=== PATIENT | male | born 1970 | race Caucasian/White ===

== ENCOUNTER 2017-01-12 10:15 | Emergency (ER) | payer SELFPAY ==
--- NOTE | 2017-01-12 11:00 | RAD ---
EXAM DESCRIPTION: Chest,1 View CLINICAL HISTORY: 46 years Male, CHEST PAIN COMPARISON: None. TECHNIQUE: AP portable chest. FINDINGS: Expansion of the lungs with mild cardiomegaly is present with normal vascularity. No infiltrates or effusions or masses are noted. The hilar and mediastinal structures are normal. No gross bony abnormalities noted. IMPRESSION: Mild cardiomegaly with clear lung guardado and normal vascularity. Electronically signed by: Broderick Lala MD 01/12/2017 10:59 AM CDT
[2017-01-12] MEDS: NITROGLYCERIN 0.4 MG 25 EA TAB SL ONE (11:06)
--- NOTE | 2017-01-12 11:23 | ED.PDOC ---
History of Present Illness - General Chief Complaint: Chest Pain/CA Stated Complaint: CHEST PAIN Time Seen by Provider: 01/12/17 10:18 Source: patient Exam Limitations: no limitations - History of Present Illness Initial Comments: PT REPORTS MID STERNAL CHEST PAIN SINCE 830 THIS AM THAT AWOKE HIM FROM SLEEP. PT REPORTS PAIN IS ASSOCIATED WITH DIAPHORESIS. HE DENIES SOB OR RADIATION OF PAIN. PT REPORTS HISTORY OF CA IN 2014 WITH NO STENT PLACEMENT. 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 PT REPORTS PAIN IS 6/10 AT THIS TIME AFTER TAKING 2 BABY ASA AT HOME Timing/Duration: 1-3 hours Severity/Quality: moderate, pressure Location: substernal, central Chest Pain Radiation: no radiation Activities at Onset: sleep Prior Chest Pain/Cardiac Workup: heart attack - 2014 Improving Factors: nothing Worsening Factors: other - LAYING ON RIGHT SIDE AND BACK Nitro Today/Relief: no nitro taken today Aspirin Treatment Today: 81 mg x 2 Associated Symptoms: diaphoresis Allergies/Adverse Reactions: Allergies NO KNOWN ALLERGY Allergy (Verified 01/12/17 10:36) Review of Systems - Review of Systems Constitutional: Denies: chills, fever EENTM: Denies: blurred vision, nose congestion Respiratory: Denies: cough, short of breath Cardiology: States: see HPI, chest pain. Denies: edema Gastrointestinal/Abdominal: Denies: abdominal pain, nausea Genitourinary: Denies: dysuria, hematuria Musculoskeletal: Denies: joint pain, joint swelling Skin: Denies: change in color, lesions Neurological: Denies: headache, paresthesia Endocrine: Denies: intolerance to cold, intolerance to heat Hematologic/Lymphatic: Denies: anemia, easy bleeding Past Medical History (General) - Patient Medical History Hx Stroke: No Hx Asthma: No Hx of COPD: No Hx Cardiac Disorders: Yes - [place] 2014 Hx Congestive Heart Failure: No Hx Hypertension: Yes Hx Diabetes: No Hx Other - free text: HYPERLIPIDEMIA - Social History Hx Tobacco Use: Yes - 1PPD Physical Exam - Physical Exam General Appearance: Alert, Obvious distress, Obese Eyes, Ears, Nose, Throat Exam: normal ENT inspection Neck: normal inspection Respiratory: chest non-tender, lungs clear, normal breath sounds, no respiratory distress Cardiovascular/Chest: regular rate, rhythm, no edema, no murmur Gastrointestinal/Abdominal: non tender, soft Extremity: normal range of motion, non-tender Neurologic: alert, normal mood/affect, oriented x 3 Skin Exam: normal color, warm/dry Progress - Progress Progress: 01/12/17 11:20 PT REPORTS COMPLETE RESOLUTION OF CHEST PAIN AFTER 1 SL NTG. 01/12/17 11:40 LAB FINDINGS AND EKG FINDINGS DISCUSSED WITH PT. DISCUSSED PLAN TO TRANSFER TO [facility]. NTG AND HEPARIN DRIP ORDERED. - Results/Orders Results/Orders: 01/12/17 10:38 IV Care:Saline Lock per Protoc QSHIFT Telemetry .ONCE Sodium Chloride 0.9% (Flush) [Saline Flush Syringe] 10 ml IV PRN PRN EKG Stat Pulse Ox Stat 01/12/17 11:00 B-TYPE NATRIURETIC PEPTIDE/BNP Stat CARDIAC PANEL,ER Stat HEPATIC FUNCTION PANEL Stat 01/12/17 11:45 Heparin Premix [Heparin/D5w 25,000U/500ML] 25,000 units Premix Bag 1 bag IVS PRN 01/12/17 12:00 Nitroglycerin/D5w IV 50,000 mcg Premix Bottle 1 bottle IVS PRN Laboratory Results - last 24 hr 01/12/17 01/12/17 01/12/17 10:36 11:00 11:00 WBC 23.5 H* RBC 5.82 Hgb 16.7 Hct 49.6 MCV 85.1 MCH 28.7 MCHC 33.7 RDW 13.5 Plt Count 356 MPV 8.8 Absolute Neuts (auto) 19.70 H Absolute Lymphs (auto) 2.10 Absolute Monos (auto) 1.10 H Absolute Eos (auto) 0.30 Absolute Basos (auto) 0.30 H Neutrophils % 84.0 H Neutrophils % (Manual) 71.0 Lymphocytes % 9.1 L Lymphocytes % (Manual) 7.0 Monocytes % 4.5 Monocytes % (Manual) 0.0 Eosinophils % 1.1 Basophils % 1.3 Band Neutrophils 22.0 Platelet Estimate Normal PT 12.3 INR 1.090 PTT (SP) 36.0 Sodium 138 Potassium 4.0 Chloride 101 Carbon Dioxide 23 Anion Gap 18.0 BUN 20 H Creatinine 1.14 BUN/Creatinine Ratio 17.5 POC Glucose 164 H Random Glucose 176 H Serum Osmolality 282.6 Calcium 9.8 Magnesium 1.9 Total Bilirubin 0.6 Direct Bilirubin < 0.1 Indirect Bilirubin 0.5 AST 38 ALT 49 Alkaline Phosphatase 85 Creatine Kinase 125 CK-MB (CK-2) 10.7 H* CK-MB (CK-2) % Not Reportable Troponin I 0.08 H* Serum Total Protein 7.7 Albumin 4.2 - EKG/XRAY/CT EKG: Sinus, Tachy - @101, NL NTERVALS, NL AXIS, ST depression - SLIGHT WITH T WAVE INVERSIONS IN LATERAL LEADS, NO OLD EKG FOR COMPARISON Comments: EKG #2- NSR@93BPM, NO ACUTE ST-T WAVE CHANGES COMPARED TO PREVIOUS XRAY: chest - MILD CARDIOMEGALY, OTHERWISE NORMAL PER RAD. Departure - Departure Clinical Impression: Acute myocardial infarction Time of Disposition: 11:42 Disposition: Transfer to Hospital Condition: Fair Departure Forms: ED Discharge - Pt. Copy, Patient Portal Self Enrollment Transfer to Outside Facility - Transfer Information Accepting Provider:: DR. DAVIES Accepting Facility: [facility] Reason for Transfer: required specialist not available - CHIEF ENVIRONMENTAL COMMITMENT OFFICER
[2017-01-12] MEDS: ASPIRIN TABLET 325 MG TAB PO ONE (11:29)
[2017-01-12] MEDS ORDERED: HEPARIN PREMIX 500 ML ONE (11:37)
[2017-01-12] MEDS: METOPROLOL TARTRATE INJ 5 MG/5 ML VIAL IV ONE (11:55)
[2017-01-12] MEDS: HEPARIN PREMIX 25,000 UNITS in PREMIX BAG 1 BAG IVS SCH (12:02)
[2017-01-12 12:29] VITALS: TEMP 98.2
[2017-01-12] MEDS: NITROGLYCERIN/D5W IV 50,000 MCG in PREMIX BOTTLE 1 BOTTLE IVS SCH (12:57)
[2017-01-12] MEDS ORDERED: NITROGLYCERIN/D5W IV 250 ML IVS ONE (12:57)
[2017-01-12] MEDS: SODIUM CHLORIDE 0.9% (FLUSH) 10 ML SYG IV PRN (13:04)
[2017-01-12 14:12] VITALS: BP 114/59; O2SAT 95
== END 2017-01-12 12:40 | disposition short-term general hospital (02) ==
LOC: ER 10:15
DX: I21.3 ST elevation (STEMI) myocardial infarction of unspecified site (principal); I25.2 Old myocardial infarction; I10 Essential (primary) hypertension; F17.200 Nicotine dependence, unspecified, uncomplicated; E78.5 Hyperlipidemia, unspecified; Z79.82 Long term (current) use of aspirin; Z79.899 Other long term (current) drug therapy

== ENCOUNTER 2017-01-20 13:40 | Emergency (ER) | payer SELFPAY ==
[2017-01-20 13:53] VITALS: TEMP 96.3
--- NOTE | 2017-01-20 14:20 | ED.PDOC ---
History of Present Illness - General Chief Complaint: Lower Extremity Injury Stated Complaint: left ankle pain Time Seen by Provider: 01/20/17 14:20 Source: patient Exam Limitations: no limitations - History of Present Illness Initial Comments: Lowell Brown 46 y/o male stated that his left heel had been hurting sharp pain whenever he walks for several days.Denies history of trauma or overuse injuries.No fever no foot swelling Occurred: other - several days Pain - Lower Extremity: moderate: Left Foot Method of Injury: unknown Improving Factors: rest Worsening Factors: movement Allergies/Adverse Reactions: Allergies NO KNOWN ALLERGY Allergy (Verified 01/12/17 10:36) Home Medications: Ambulatory Orders Naproxen [Naprosyn] 500 mg PO BID #20 tab 01/20/17 Review of Systems - Review of Systems Constitutional: States: no symptoms reported EENTM: States: no symptoms reported Respiratory: States: no symptoms reported Cardiology: States: no symptoms reported Gastrointestinal/Abdominal: States: no symptoms reported Genitourinary: States: no symptoms reported Musculoskeletal: States: see HPI Skin: States: no symptoms reported Neurological: States: no symptoms reported Endocrine: States: no symptoms reported Hematologic/Lymphatic: States: no symptoms reported Past Medical History (General) - Patient Medical History Hx Stroke: No Hx Asthma: No Hx of COPD: No Hx Cardiac Disorders: Yes - [place] 2014 Hx Congestive Heart Failure: No Hx Hypertension: Yes Hx Diabetes: No Surgical History: no surgical history, other - cardiac cath - Vaccination History Hx Influenza Vaccination: No Hx Pneumococcal Vaccination: No - Social History Hx Tobacco Use: Yes - 1PPD - Activities of Daily Living Patient Lives Alone: No - family Family Medical History - Family History Father Living Status: Still Living Hx Family Hypertension: Yes Hx Cardiac Disease: Yes - dad Physical Exam - Physical Exam General Appearance: Alert, Comfortable, No apparent distress Eyes, Ears, Nose, Throat: PERRL/EOMI, normal ENT inspection, TMs normal, pharynx normal Neck: non-tender, full range of motion, supple Cardiovascular/Respiratory: regular rate, rhythm, no M/R/G, normal peripheral pulses, no JVD, normal breath sounds, no respiratory distress Gastrointestinal/Abdominal: non-tender, no organomegaly Back: normal inspection, no CVA tenderness, no vertebral tenderness Thigh/Hip: normal inspection, non-tender, no evidence of injury Leg: normal inspection, non-tender, no evidence of injury Knee: normal inspection, non-tender, no evidence of injury Ankle: normal inspection, non-tender, no evidence of injury Foot: normal inspection, no evidence of injury, other - pain elicited on pressure left heel Neuro/Tendon: normal sensation, normal motor functions, normal tendon functions Mental Status: alert Skin: normal color, warm/dry Progress - Progress Progress: 01/20/17 14:38 Vital Signs - 8 hr 01/20/17 13:49 Temperature 96.3 F L Pulse Rate [ 74 left brachial] Respiratory 16 Rate Blood Pressure 122/78 [left brachial] O2 Sat by Pulse 96 Oximetry Departure - Departure Clinical Impression: Plantar fasciitis Time of Disposition: 14:39 Disposition: Discharge to Home or Self Care Condition: Good Departure Forms: ED Discharge - Pt. Copy, Patient Portal Self Enrollment Instructions: Get Back in the Game after Plantar Fasciitis, Plantar Fasciitis, DI for Plantar Fasciitis Prescriptions: Naproxen [Naprosyn] 500 mg PO BID #20 tab Home Medications: Ambulatory Orders Naproxen [Naprosyn] 500 mg PO BID #20 tab 01/20/17 Additional Instructions: Follow up with primary md in one week call for appointment
[2017-01-20 14:56] VITALS: BP 114/69; O2SAT 99
== END 2017-01-20 14:50 | disposition home or self-care (01) ==
LOC: ER 13:40
DX: M72.2 Plantar fascial fibromatosis (principal); I25.2 Old myocardial infarction; I10 Essential (primary) hypertension; F17.200 Nicotine dependence, unspecified, uncomplicated

== ENCOUNTER 2018-05-27 11:27 | Emergency (ER) | payer SELFPAY ==
--- NOTE | 2018-05-27 11:41 | ED.PDOC ---
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 Timing/Duration: 1-3 hours Severity: moderate Improving Factors: nothing Worsening Factors: nothing Associated Symptoms: other - see hpi Allergies/Adverse Reactions: Allergies NO KNOWN ALLERGY Allergy (Verified 01/12/17 10:36) Home Medications: Ambulatory Orders NK [NK] 05/27/18 Review of Systems - Review of Systems Constitutional: States: no symptoms reported EENTM: States: no symptoms reported Respiratory: States: no symptoms reported Cardiology: States: no symptoms reported Gastrointestinal/Abdominal: States: see HPI Musculoskeletal: States: see HPI, back pain Skin: States: no symptoms reported Neurological: States: no symptoms reported Hematologic/Lymphatic: States: no symptoms reported Past Medical History (General) - Patient Medical History Hx Stroke: No Hx Asthma: No Hx of COPD: No Hx Cardiac Disorders: Yes - [place] 2014 Hx Congestive Heart Failure: No Hx Hypertension: Yes Hx Diabetes: No Surgical History: no surgical history - Vaccination History Hx Influenza Vaccination: No Hx Pneumococcal Vaccination: No - Social History Hx Tobacco Use: Yes - 1PPD Hx Substance Use: Yes - meth amphetamine-3 years ;had used 4 days ago smoked no needles Hx Physical Abuse: No Hx Emotional Abuse: No Family Medical History - Family History Father Living Status: Still Living Hx Family Hypertension: Yes Hx Cardiac Disease: Yes - multiple family members Physical Exam - Physical Exam General Appearance: Alert, Anxious, Comfortable, No apparent distress Eye Exam: bilateral normal Ears, Nose, Throat: hearing grossly normal, normal ENT inspection, normal pharynx Neck: non-tender, full range of motion, supple Respiratory: chest non-tender, lungs clear, normal breath sounds, no respiratory distress Cardiovascular/Chest: normal peripheral pulses, regular rate, rhythm, no murmur Peripheral Pulses: radial,right: 2+, radial,left: 2+ Gastrointestinal/Abdominal: normal bowel sounds, non tender, soft, no organomegaly Back Exam: no CVA tenderness, no vertebral tenderness Extremity: no pedal edema, no calf tenderness Neurologic: alert, oriented x 3 Skin Exam: normal color, warm/dry Progress - Progress Progress: 05/27/18 12:15 Vital Signs - 8 hr 05/27/18 05/27/18 11:39 11:45 Temperature 95.6 F L Pulse Rate [ 108 H left brachial] Respiratory 28 H 28 H Rate Blood Pressure 163/108 [right brachial ] O2 Sat by Pulse 100 Oximetry 05/27/18 15:51 Discuss blood test result with positive troponin x 2 as well as ekg ischemic changes and positive meth ;Talked about transfer to [facility] but declined ambulance transfer and wants to go by himself there drive by pov. - Results/Orders Results/Orders: 05/27/18 11:43 IV Care:Saline Lock per Protoc QSHIFT 05/27/18 15:07 Lactated Ringers [Lr] 1,000 ml IVS ONCE Laboratory Results - last 24 hr 05/27/18 05/27/18 05/27/18 12:21 12:26 12:30 WBC 10.0 RBC 6.39 H Hgb 18.0 Hct 53.8 H MCV 84.2 MCH 28.1 MCHC 33.4 RDW 14.8 H Plt Count 270 MPV 9.1 Absolute Neuts (auto) 6.90 H Absolute Lymphs (auto) 2.20 Absolute Monos (auto) 0.60 Absolute Eos (auto) 0.20 Absolute Basos (auto) 0.10 Neutrophils % 69.0 Lymphocytes % 22.5 Monocytes % 5.7 Eosinophils % 1.7 Basophils % 1.1 PT 10.7 INR 1.07 PTT (SP) 26.3 Sodium 136 Potassium 4.0 Chloride 102 Carbon Dioxide 26 Anion Gap 12.0 BUN 16 Creatinine 0.97 BUN/Creatinine Ratio 16.5 Random Glucose 116 H Serum Osmolality 274.1 L Calcium 9.7 Magnesium 1.9 Total Bilirubin 0.7 Direct Bilirubin < 0.1 Indirect Bilirubin 0.6 AST 21 ALT 15 Alkaline Phosphatase 75 Creatine Kinase 124 CK-MB (CK-2) 9.8 H* CK-MB (CK-2) % 7.90 H Troponin I 0.07 H* B-Natriuretic Peptide 340.0 H* Serum Total Protein 7.5 Albumin 4.4 Lipase 20 L Urine Color Yellow Urine Appearance Clear Urine pH 6.5 Ur Specific [place] 1.025 Urine Protein Negative Urine Glucose (UA) Negative Urine Ketones Negative Urine Blood Trace-lysed H Urine Nitrite Negative Urine Bilirubin Negative Urine Urobilinogen 0.2 Ur Leukocyte Esterase Negative Urine RBC 1-3 Urine WBC 0-1 Ur Epithelial Cells 0-1 Urine Bacteria Rare Urine Opiates Screen Positive H Urine Barbiturates Negative Ur Phencyclidine Scrn Negative U Amphetamin/Meth Scrn Positive H U Benzodiazepines Scrn Negative U Cocaine Metab Screen Negative U Cannabinoids Screen Negative 05/27/18 14:43 WBC RBC Hgb Hct MCV MCH MCHC RDW Plt Count MPV Absolute Neuts (auto) Absolute Lymphs (auto) Absolute Monos (auto) Absolute Eos (auto) Absolute Basos (auto) Neutrophils % Lymphocytes % Monocytes % Eosinophils % Basophils % PT INR PTT (SP) Sodium Potassium Chloride Carbon Dioxide Anion Gap BUN Creatinine BUN/Creatinine Ratio Random Glucose Serum Osmolality Calcium Magnesium Total Bilirubin Direct Bilirubin Indirect Bilirubin AST ALT Alkaline Phosphatase Creatine Kinase CK-MB (CK-2) CK-MB (CK-2) % Troponin I 0.06 H B-Natriuretic Peptide Serum Total Protein Albumin Lipase Urine Color Urine Appearance Urine pH Ur Specific [place] Urine Protein Urine Glucose (UA) Urine Ketones Urine Blood Urine Nitrite Urine Bilirubin Urine Urobilinogen Ur Leukocyte Esterase Urine RBC Urine WBC Ur Epithelial Cells Urine Bacteria Urine Opiates Screen Urine Barbiturates Ur Phencyclidine Scrn U Amphetamin/Meth Scrn U Benzodiazepines Scrn U Cocaine Metab Screen U Cannabinoids Screen - EKG/XRAY/CT EKG: Sinus, ST depression - inferolateral leads Comments: HR-93 XRAY: chest - normal portable chest Xray Comments: abdominal sono-no acute changes noted Departure - Departure Clinical Impression: Elevated troponin I level, Methamphetamine dependence, Non compliance w medication regimen Abdominal pain Qualifiers: Abdominal location: epigastric Qualified Code(s): R10.13 - Epigastric pain Back ache Qualifiers: Back pain location: thoracic back pain Chronicity: unspecified Back pain laterality: midline Qualified Code(s): M54.6 - Pain in thoracic spine Time of Disposition: 15:57 Disposition: Left Against Medical Advice Condition: Fair Departure Forms: ED Discharge - Pt. Copy, Patient Portal Self Enrollment Home Medications: Ambulatory Orders NK [NK] 05/27/18
--- NOTE | 2018-05-27 12:02 | RAD ---
EXAM DESCRIPTION: Chest,1 View CLINICAL HISTORY: pain COMPARISON: 12 January 2017 TECHNIQUE: AP portable chest FINDINGS: The lungs are clear. There is no infiltrate or effusion. The heart is normal size. IMPRESSION: Normal portable chest Electronically signed by: Anoop Gruber MD 05/27/2018 12:01 PM [facility]AN[facility] CAREGIVER
[2018-05-27] MEDS: MORPHINE SULFATE INJ 10 MG/ML VIAL IV ONE (12:09)
--- NOTE | 2018-05-27 13:08 | US ---
Procedure: US ABDOMEN Exam Date: 05/27/2018 Ordering Provider: Hadley Corona Clinical Indication: Abdominal pain Comparison: None Technique: Real-time ultrasonography was obtained over the abdominal viscera and home furnishings sales representative images were recorded. Findings: The liver is normal in size and contour. There is normal echogenicity throughout the liver. There are no intrahepatic masses. There is no intrahepatic ductal dilatation. The gallbladder is normal in size and appearance. There are no gallstones. There is no gallbladder wall thickening or pericholecystic fluid. The extrahepatic common duct is normal in size measuring 4 mm. The spleen is normal in size and contour. There is a 1 cm splenic cyst. The visualized portions of the pancreas are normal. The aorta has a normal appearance. The inferior vena cava has a normal appearance. The right kidney measures 9.4 cm in bipolar length. There are no suspicious masses, calculi, or hydronephrosis. The left kidney measures 10.6 cm in bipolar length. There are no suspicious masses, calculi, or hydronephrosis. There is a 2.1 cm cyst in the upper pole. There is no ascites. Impression: 1. Splenic and left renal cyst. The exam is otherwise negative. Electronically signed by: Julito Flor MD 05/27/2018 1:07 PM [facility]
[2018-05-27] MEDS: ASPIRIN (CHEWABLE) 81 MG TAB PO ONE (13:59)
[2018-05-27] MEDS: LACTATED RINGERS 1,000 ML IVS ONE (15:16)
[2018-05-27 15:21] VITALS: BP 141/90; TEMP 96.2; O2SAT 98
== END 2018-05-27 16:00 | disposition left against medical advice (07) ==
LOC: ER 11:27
DX: R10.13 Epigastric pain (principal); M54.6 Pain in thoracic spine; R79.89 Other specified abnormal findings of blood chemistry; F15.20 Other stimulant dependence, uncomplicated; I25.2 Old myocardial infarction; I10 Essential (primary) hypertension; Z87.891 Personal history of nicotine dependence; Z91.14 Patient's other noncompliance with medication regimen; Z53.29 Procedure and treatment not carried out because of patient's decision for other reasons

== ENCOUNTER 2018-08-31 00:53 | Emergency (ER) | payer SELFPAY ==
[2018-08-31] MEDS ORDERED: ASPIRIN TABLET 325 MG TAB PO ONE (01:01)
[2018-08-31] MEDS ORDERED: ONDANSETRON INJ 4 MG/2 ML VIAL IV ONE ×2 (01:01→01:31)
[2018-08-31 01:10] VITALS: O2SAT 99
[2018-08-31] MEDS: NITROGLYCERIN 0.4 MG 25 EA TAB SL ONE ×3 (01:11→01:21)
--- NOTE | 2018-08-31 01:23 | ED.PDOC ---
History of Present Illness - General Chief Complaint: Chest Pain/MT Stated Complaint: Chest pain Time Seen by Provider: 08/31/18 01:05 Source: patient Exam Limitations: no limitations - History of Present Illness Initial Comments: ACUTE ONSET OF CHEST PAIN, EPIGASTRIC AREA AND RADIATION TO THE BACK 04/17; ASSOCIATED WITH SOB AND DIPHORESIS. HAS HAD SIMILAR EPISODES IN THE PAST AND VOICES THAT HE HAS HAD THREE MT'S. 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 THE LAST TIME HE HAD AN MT HE REFUSED TRANSFER TO [place] BECAUSE HE USES METHAMPHETAMINES. HE LAST USED THREE DAYS AGO. Timing/Duration: 1/2 hour Severity/Quality: severe, pressure Location: substernal Chest Pain Radiation: back Activities at Onset: none Prior Chest Pain/Cardiac Workup: heart attack Improving Factors: nothing Allergies/Adverse Reactions: Allergies NO KNOWN ALLERGY Allergy (Verified 01/12/17 10:36) Home Medications: Ambulatory Orders NK 05/27/18 Review of Systems - Review of Systems Constitutional: States: diaphoresis EENTM: States: no symptoms reported Respiratory: States: short of breath Cardiology: States: chest pain, palpitations Gastrointestinal/Abdominal: States: nausea Genitourinary: States: no symptoms reported Musculoskeletal: States: no symptoms reported Skin: States: no symptoms reported Neurological: States: no symptoms reported Endocrine: States: no symptoms reported Hematologic/Lymphatic: States: no symptoms reported Past Medical History (General) - Patient Medical History Hx Stroke: No Hx Asthma: Yes Hx of COPD: No Hx Cardiac Disorders: Yes - MT x 2; hypercholesterolemia Hx Congestive Heart Failure: No Hx Hypertension: Yes Hx Diabetes: No Surgical History: no surgical history - Vaccination History Hx Tetanus, Diphtheria Vaccination: No Hx Influenza Vaccination: No Hx Pneumococcal Vaccination: No - Social History Hx Tobacco Use: Yes Hx Alcohol Use: No Hx Substance Use: Yes - meth amphetamine-3 years ;had used 4 days ago smoked no needles Hx Physical Abuse: No Hx Emotional Abuse: No Family Medical History - Family History Father Living Status: Still Living Hx Family Hypertension: Yes Hx Cardiac Disease: Yes - multiple family members Physical Exam - Physical Exam General Appearance: Alert, Obvious distress, Well Developed, Well Groomed Eyes, Ears, Nose, Throat Exam: PERRL/EOMI, normal ENT inspection Neck: non-tender, full range of motion, supple, normal inspection Respiratory: lungs clear, normal breath sounds, no respiratory distress, no accessory muscle use Cardiovascular/Chest: normal peripheral pulses, regular rate, rhythm, no edema, no gallop, no murmur Peripheral Pulses: radial,right: 2+, radial,left: 2+ Gastrointestinal/Abdominal: normal bowel sounds, soft Neurologic: no motor/sensory deficits, oriented x 3 Skin Exam: normal color Progress - Progress Progress: 08/31/18 01:36 TROPONIN I IS 0.09 08/31/18 01:[address] ELIZABETH GARCIA: ACCEPTS THE PATIENT. - Results/Orders Results/Orders: 08/31/18 01:01 Telemetry .ONCE EKG Stat Pulse Ox Stat Chest,1 View [RAD] Stat 08/31/18 01:02 Pulse Oximetry Assessment DAILY 08/31/18 01:45 Heparin Premix [Heparin/D5w 25,000U/500ML] 25,000 units Premix Bag 1 bag IVS PRN 08/31/18 02:00 Nitroglycerin/D5w IV 50,000 mcg Premix Bottle 1 bottle IVS PRN Laboratory Results WBC 11.4 K/mm3 (4.8-10.8) H 08/31/18 01:01 RBC 6.55 M/mm3 (4.70-6.10) H 08/31/18 01:01 Hgb 18.1 gm/dL (14.0-18.0) H 08/31/18 01:01 Hct 54.5 % (42.0-52.0) H 08/31/18 01:01 MCV 83.2 fl (80.0-94.0) 08/31/18 01:01 MCH 27.6 pg (27.0-31.0) 08/31/18 01:01 MCHC 33.1 g/dL (33.0-37.0) 08/31/18 01:01 RDW 13.4 % (11.5-14.5) 08/31/18 01:01 Plt Count 315 K/mm3 (130-400) 08/31/18 01:01 MPV 8.6 fl (7.40-10.4) 08/31/18 01:01 Absolute Neuts (auto) 7.60 K/uL (1.8-6.8) H 08/31/18 01:01 Absolute Lymphs (auto) 2.70 K/uL (1.0-3.4) 08/31/18 01:01 Absolute Monos (auto) 0.80 K/uL (0.2-0.8) 08/31/18 01:01 Absolute Eos (auto) 0.20 K/uL (0.0-0.4) 08/31/18 01:01 Absolute Basos (auto) 0.10 K/uL (0.0-0.1) 08/31/18 01:01 Neutrophils % 66.4 % (42.0-78.0) 08/31/18 01:01 Lymphocytes % 23.8 % (20.0-50.0) 08/31/18 01:01 Monocytes % 7.2 % (2.0-9.0) 08/31/18 01:01 Eosinophils % 1.4 % (1.0-5.0) 08/31/18 01:01 Basophils % 1.2 % (0.0-2.0) 08/31/18 01:01 PT 11.2 SECONDS (9.0-10.9) H 08/31/18 01:01 INR 1.12 (0.9-1.15) 08/31/18 01:01 PTT (SP) 26.0 SECONDS (21.8-31.6) 08/31/18 01:01 Sodium 140 mmol/L (135-145) 08/31/18 01:01 Potassium 4.3 mmol/L (3.6-5.0) 08/31/18 01:01 Chloride 103 mmol/L (101-111) 08/31/18 01:01 Carbon Dioxide 24 mmol/L (21-31) 08/31/18 01:01 Anion Gap 17.3 (12-18) 08/31/18 01:01 BUN 18 mg/dL (7-18) 08/31/18 01:01 Creatinine 1.33 mg/dL (0.6-1.3) H 08/31/18 01:01 BUN/Creatinine Ratio 13.5 (10-20) 08/31/18 01:01 Random Glucose 118 mg/dL (70-105) H 08/31/18 01:01 Serum Osmolality 282.4 mOsm/L (275-295) 08/31/18 01:01 Calcium 9.2 mg/dL (8.4-10.2) 08/31/18 01:01 Magnesium 1.9 mg/dL (1.8-2.5) 08/31/18 01:01 Creatine Kinase 157 IU/L (38-174) 08/31/18 01:01 CK-MB (CK-2) 10.6 ng/mL (0.0-4.4) H* 08/31/18 01:01 CK-MB (CK-2) % 6.75 % (0.0-3.5) H 08/31/18 01:01 Troponin I 0.09 ng/mL (0.01-0.05) H* 08/31/18 01:01 B-Natriuretic Peptide 269.0 pg/ml (0-100) H* 08/31/18 01:01 ekg: HR OF 110, MA INTERVAL OF 186, QRS OF 90, QTC OF 470, AXES OF 58 DEGREES. IMPRESSION: SINUS TACHYCARDIA, ST SEGMENT DEPRESION ON INFERO-LATERAL LEADS, SUGGESTIVE OF ISCHEMIA. THIS TRACING IS COMPARED TO ONE DATED 01/12/17. AT THAT TIME THERE WAS SINUS RHYTHM AT A RATE OF 88, NO SIGNIFANT CHANGES NOTED. Departure - Departure Clinical Impression: NSTEMI (non-ST elevated myocardial infarction), Substance abuse Time of Disposition: 01:59 Disposition: Transfer to Hospital Home Medications: Ambulatory Orders NK 05/27/18 Critical Care Note - Critical Care Note Total Time (mins): 35 Comments: CRITICAL EVENT: CHEST PAIN CRITICAL FINDINGS: NSTEMI/SUBSTANCE ABUSE CRITICAL TIME: 35 MINUTES CRITICAL ACTIONS: NITRATES SL, IV NITRATES, HEPARIN DRIP, TRANSFER TO A HIGHER LEVEL OF CARE SYSTEMS AT RISK: CARDIOVASCULAR Transfer to Outside Facility - Transfer Information Accepting Provider:: ELIZABETH GARCIA MD Accepting Facility: [facility] - NSTEMI
[2018-08-31] MEDS ORDERED: MORPHINE SULFATE INJ 10 MG/ML VIAL ONE (01:25)
[2018-08-31] MEDS ORDERED: MORPHINE SULFATE INJ 10 MG/ML VIAL IV ONE ×4 (01:30→02:21)
[2018-08-31] MEDS ORDERED: NITROGLYCERIN/D5W IV 250 ML IVS ONE (01:40)
[2018-08-31] MEDS ORDERED: HEPARIN PREMIX 500 ML ONE (01:40)
[2018-08-31] MEDS ORDERED: HEPARIN PREMIX 25,000 UNITS in PREMIX BAG 1 BAG IVS SCH (01:45)
[2018-08-31] MEDS ORDERED: NITROGLYCERIN/D5W IV 50,000 MCG in PREMIX BOTTLE 1 BOTTLE IVS SCH (02:00)
[2018-08-31 02:15] VITALS: BP 146/98; TEMP 96.8
--- NOTE | 2018-08-31 02:17 | RAD ---
CHEST 08/31/2018 CLINICAL HISTORY: Chest discomfort COMPARISON: 05/27/2018 TECHNIQUE: Single frontal Chest. FINDINGS: [Normal cardiac size. Pulmonary vasculature appears normal. Normal cardiomediastinal contours. Lungs are clear. Pleural spaces are clear. Unremarkable soft tissues and bones.] IMPRESSION: 1. Negative chest exam. 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
== END 2018-08-31 02:35 | disposition short-term general hospital (02) ==
LOC: ER 00:53
DX: I21.4 Non-ST elevation (NSTEMI) myocardial infarction (principal); F15.10 Other stimulant abuse, uncomplicated; R00.0 Tachycardia, unspecified; I25.2 Old myocardial infarction; J45.909 Unspecified asthma, uncomplicated; E78.00 Pure hypercholesterolemia, unspecified; I10 Essential (primary) hypertension; Z87.891 Personal history of nicotine dependence
CPT/HCPCS: 36415; 71045; 80048; 82550; 82553; 83880; 84484; 85025; 85610; 85730; 93005; J1644; J2270

== ENCOUNTER 2018-10-29 08:59 | Emergency (ER) | payer SELFPAY ==
[2018-10-29] MEDS ORDERED: ASPIRIN (CHEWABLE) 81 MG TAB ONE (09:11)
[2018-10-29] MEDS ORDERED: NITROGLYCERIN 0.4 MG 25 EA TAB SL ONE (09:11)
[2018-10-29 09:17] VITALS: TEMP 96.5
[2018-10-29] MEDS ORDERED: MORPHINE SULFATE INJ 10 MG/ML VIAL IV ONE (09:34)
--- NOTE | 2018-10-29 09:38 | ED.PDOC ---
History of Present Illness - General Chief Complaint: Chest Pain/NM Stated Complaint: chest pain Time Seen by Provider: 10/29/18 09:11 Source: patient Exam Limitations: no limitations - History of Present Illness Initial Comments: PT PRESENTS TO ED C/O SUDDEN ONSET OF EPIGASTRIC PAIN. SHARP, CONSTANT RADIATES TO BACK. NO C/P, SOB. DOES HAVE HX CAD AND HTN. Improving Factors: nothing Worsening Factors: nothing Associated Symptoms: diaphoresis Allergies/Adverse Reactions: Allergies NO KNOWN ALLERGY Allergy (Verified 10/29/18 09:34) Home Medications: Ambulatory Orders Lipitor mg PO DAILY 10/29/18 Lisinopril mg PO DAILY 10/29/18 Review of Systems - Review of Systems Constitutional: States: no symptoms reported EENTM: States: no symptoms reported Respiratory: Denies: cough, short of breath Cardiology: Denies: chest pain, palpitations, syncope Gastrointestinal/Abdominal: States: abdominal pain, nausea. Denies: vomiting Genitourinary: States: no symptoms reported Musculoskeletal: States: back pain Skin: States: other - DIAPHORESIS. Denies: change in color Neurological: Denies: numbness, paresthesia, weakness Endocrine: States: no symptoms reported Hematologic/Lymphatic: States: no symptoms reported Past Medical History (General) - Patient Medical History Hx Stroke: No Hx Asthma: Yes Hx of COPD: No Hx Cardiac Disorders: Yes - NM x 2; hypercholesterolemia Hx Congestive Heart Failure: No Hx Hypertension: Yes Hx Diabetes: No Surgical History: no surgical history - Vaccination History Hx Tetanus, Diphtheria Vaccination: No Hx Influenza Vaccination: No Hx Pneumococcal Vaccination: No - Social History Hx Tobacco Use: Yes Hx Alcohol Use: No Hx Substance Use: Yes - meth amphetamine-3 years ;had used 4 days ago smoked no needles Hx Physical Abuse: No Hx Emotional Abuse: No Family Medical History - Family History Father Living Status: Still Living Hx Family Hypertension: Yes Hx Cardiac Disease: Yes - multiple family members Physical Exam - Physical Exam General Appearance: Alert, Other - MOD DISTRESS. Eye Exam: bilateral normal Ears, Nose, Throat: hearing grossly normal, normal ENT inspection Neck: non-tender, full range of motion, supple Respiratory: lungs clear, normal breath sounds Cardiovascular/Chest: regular rate, rhythm, no murmur, other - BP NOTED. Gastrointestinal/Abdominal: soft, no organomegaly, other - TTP EPIGASTRIC AND RUQ. HYPOACTIVE BS. Back Exam: normal inspection, no CVA tenderness Extremity: normal range of motion, non-tender, other - NO C/C/E Neurologic: alert, other - ANXIOUS Skin Exam: diaphoresis, other - NO RASH Lymphatic: no adenopathy Progress - Progress Progress: 10/29/18 09:44 REVIEWED OLD RECORDS. PREVIOUSLY ELEVATED TROP. LAST CR 1.33 BUT ALL PREVIOUS NL. 10/29/18 10:13 PT'S PAIN MUCH BETTER. ABDOMEN SOFT NTTP, BP 123/82. STILL DIAPHORETIC. HAS BEEN EVALUATED IN FOR PREVIOUSLY ELEVATED TROPS. 10/29/18 10:21 PT'S LAST 2 VISITS HERE FOR WERE CP. HAS ELEVATED TROPS ON ALL VISITS. 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 HAS HX OF METHAMPHETAMINE ABUSE. USED METH BEFORE PREVIOUS EPISODES OF CP. ADMITS TO USING METH "ABOUT A WEEK AGO". COUNSELED PT ABOUT HIS METH USE AND HE "KNOWS HE NEEDS TO QUIT" ADVISED HE MOST LIKELY WILL SUFFER NM IN THE FUTURE TO WHICH HE STATES "I KNOW". ADVISED TRANSFER TO [facility] FOR EVALUATION. 10/29/18 10:39 PT'S VITAL SIGNS STILL STABLE. REFUSES FURTHER W/U AND WANTS TO LEAVE AGAINST MEDICAL ADVISE. HAVE DISCUSSED WITH THE PATIENT RISK VS BENEFITS OF LEAVING INCLUDING FURTHER CARDIAC DAMAGE, AND PERMENANT DISABILITY. HE UNDERSTANDS AND STILL REFUSES TO STAY. - EKG/XRAY/CT EKG: Sinus - RATE 101, OCC PAC, NL AXIS, NL INTERVALS, , nonspecific ST T wave Chg - INVERSION V4-6, SL DEPRESSION. NAIP, Unchanged from - 08/31/18 XRAY: chest - HIATAL HERNIA, NO FREE AIR, NO ACUTE PULMONARY PROCESS Departure - Departure Clinical Impression: Elevation of cardiac enzymes, Non compliance w medication regimen Abdominal pain Qualifiers: Abdominal location: epigastric Qualified Code(s): R10.13 - Epigastric pain Hypertension Qualifiers: Hypertension type: essential hypertension Qualified Code(s): I10 - Essential (primary) hypertension Time of Disposition: 10:42 Disposition: Left Against Medical Advice Condition: Fair Departure Forms: ED Discharge - Pt. Copy, Patient Portal Self Enrollment Instructions: DI for Chest Pain Home Medications: Ambulatory Orders Lipitor mg PO DAILY 10/29/18 Lisinopril mg PO DAILY 10/29/18
--- NOTE | 2018-10-29 09:56 | RAD ---
EXAM DESCRIPTION: Chest,1 View CLINICAL HISTORY: 48 years Male, EPIGASTRIC PAIN COMPARISON: Radiographs of the chest dated 08/31/2018. TECHNIQUE: AP radiograph of the chest was obtained. FINDINGS: Trachea is midline.The cardiomediastinal silhouette is normal in size. The pulmonary vasculature is within normal limits.The lungs are clear with no acute consolidation.No evidence of pleural effusions. IMPRESSION: No acute cardiopulmonary process. Electronically signed by: Dayana Vigil MD 10/29/2018 9:53 AM CDT
[2018-10-29 10:18] VITALS: BP 123/82; O2SAT 94
== END 2018-10-29 10:48 | disposition left against medical advice (07) ==
LOC: ER 08:59
DX: R10.13 Epigastric pain (principal); I11.0 Hypertensive heart disease with heart failure; R79.89 Other specified abnormal findings of blood chemistry; I49.1 Atrial premature depolarization; K44.9 Diaphragmatic hernia without obstruction or gangrene; I25.10 Atherosclerotic heart disease of native coronary artery without angina pectoris; F15.11 Other stimulant abuse, in remission; J45.909 Unspecified asthma, uncomplicated; I25.2 Old myocardial infarction; E78.00 Pure hypercholesterolemia, unspecified; Z91.14 Patient's other noncompliance with medication regimen; Z53.29 Procedure and treatment not carried out because of patient's decision for other reasons; Z87.891 Personal history of nicotine dependence; Z79.899 Other long term (current) drug therapy
CPT/HCPCS: 36415; 71045; 80053; 82150; 83690; 83880; 84484; 85025; 85610; 85730; 93005; J2270

== ENCOUNTER 2018-10-31 01:35 | Emergency (ER) | payer SELFPAY ==
--- NOTE | 2018-10-31 05:04 | RAD ---
EXAM: XR Chest, 1 View CLINICAL HISTORY: The patient is 48 years old and is Male; CHEST PAIN TECHNIQUE: Frontal view of the chest. COMPARISON: Chest radiograph October 29, 2018. FINDINGS: LUNGS: Unremarkable. No consolidation. PLEURAL SPACE: Unremarkable. No pneumothorax. HEART: Unremarkable. No cardiomegaly. MEDIASTINUM: Unremarkable. BONES/JOINTS: Unremarkable. IMPRESSION: No acute cardiopulmonary process. Electronically signed by: Marlys Zuniga MD 10/31/2018 2:13 AM CDT
[2018-10-31 06:43] VITALS: BP 136/94; O2SAT 99
[2018-10-31] MEDS ORDERED: HEPARIN PREMIX 500 ML ONE (06:53)
[2018-10-31] MEDS: HEPARIN SODIUM (PORCINE) 5,000 U/ML VIAL IV ONE (06:56)
[2018-10-31] MEDS: HEPARIN PREMIX 25,000 UNITS in PREMIX BAG 1 BAG IVS SCH (06:59)
[2018-10-31 07:21] VITALS: TEMP 96.9
== END 2018-10-31 07:21 | disposition short-term general hospital (02) ==
LOC: ER 01:35
DX: I21.4 Non-ST elevation (NSTEMI) myocardial infarction (principal); I25.2 Old myocardial infarction; I10 Essential (primary) hypertension; E78.00 Pure hypercholesterolemia, unspecified; F17.200 Nicotine dependence, unspecified, uncomplicated
CPT/HCPCS: 36415; 71045; 80053; 82550; 82553; 83690; 83880; 84484; 85025; 85610; 85730; 93005; J1644

== ENCOUNTER 2019-01-17 15:59 | Emergency (ER) | payer OTHER ==
[2019-01-17] MEDS ORDERED: NITROGLYCERIN 0.4 MG 25 EA TAB SL ONE ×2 (16:13→16:21)
[2019-01-17] MEDS ORDERED: ASPIRIN (CHEWABLE) 81 MG TAB ONE (16:13)
[2019-01-17] MEDS ORDERED: ASPIRIN TABLET 325 MG TAB PO ONE (16:21)
[2019-01-17] MEDS ORDERED: ATORVASTATIN 20 MG TAB PO ONE (16:21)
[2019-01-17] MEDS ORDERED: ASPIRIN (CHEWABLE) 81 MG TAB PO ONE (16:21)
--- NOTE | 2019-01-17 16:35 | ED.PDOC ---
History of Present Illness - General Chief Complaint: Chest Pain/OK Time Seen by Provider: 01/17/19 16:20 Source: patient Exam Limitations: clinical condition - History of Present Illness Initial Comments: patient comes in today from [facility] for [facility] pain. Patient stated he started having problems with it last night but did not want to come to the emergency room. About 45 minutes prior to arrival the chest pain got much worse and began being associated with diaphoresis, nausea, and pain to his left arm. Patient states his abdomen is also feeling cramping and the pain is going back to his back. Patient states the pain is 10 out of 10 and this feels similar to his angina in the past. Patient states he has had acute MIs that were thought to be secondary to his methamphetamine abuse and no stents or bypass was necessary. Patient states he has a past history of acute MIs, hypertension, and methamphetamine abuse. Patient has states prior to it worsening this morning he did not feel like he was getting ill and denies any fever, chills, cough or cold symptoms. Nitroglycerin 2 was given on arrival without improvement. Timing/Duration: 7-24 hours Severity/Quality: severe, tightness Location: central Chest Pain Radiation: arms Activities at Onset: rest Prior Chest Pain/Cardiac Workup: heart attack Improving Factors: nothing Worsening Factors: nothing Nitro Today/Relief: 0.4 mg x 2, provided by ED Aspirin Treatment Today: 325 mg x 1, provided by ED Associated Symptoms: abdominal pain, diaphoresis, nausea/vomiting Allergies/Adverse Reactions: Allergies Losartan Allergy (Verified 01/17/19 16:46) Review of Systems - Review of Systems Constitutional: States: diaphoresis. Denies: chills, fever, malaise EENTM: States: no symptoms reported. Denies: eye pain, ear pain, nose pain, t hroat pain Respiratory: States: no symptoms reported. Denies: cough, short of breath, wheezing, other Cardiology: States: chest pain. Denies: palpitations, syncope Gastrointestinal/Abdominal: States: abdominal pain, nausea. Denies: constipation, diarrhea, vomiting Musculoskeletal: States: see HPI Skin: States: see HPI Neurological: States: see HPI Past Medical History (General) - Patient Medical History Hx Stroke: No Hx Asthma: Yes Hx of COPD: No Hx Cardiac Disorders: Yes - OK x 2; hypercholesterolemia Hx Congestive Heart Failure: No Hx Hypertension: Yes Hx Diabetes: No Hx MRSA: No - Vaccination History Hx Tetanus, Diphtheria Vaccination: No Hx Influenza Vaccination: No Hx Pneumococcal Vaccination: No - Social History Hx Tobacco Use: Yes Hx Alcohol Use: No Hx Substance Use: Yes - meth amphetamine-3 years ;had used 4 days ago smoked no needles Hx Physical Abuse: No Hx Emotional Abuse: No Family Medical History - Family History Father Living Status: Still Living Hx Family Hypertension: Yes Hx Cardiac Disease: Yes - multiple family members Physical Exam - Physical Exam General Appearance: Obvious distress - clenching body and teeth and diaphoretic Eyes, Ears, Nose, Throat Exam: PERRL/EOMI, normal ENT inspection, TMs normal, pharynx normal Neck: non-tender, full range of motion, supple, normal inspection Respiratory: chest non-tender, lungs clear, normal breath sounds, no respiratory distress Cardiovascular/Chest: normal peripheral pulses, regular rate, rhythm, no JVD, no murmur, tachycardia Peripheral Pulses: radial,right: 2+, radial,left: 2+ Gastrointestinal/Abdominal: normal bowel sounds, soft, no pulsatile mass, tenderness - diffusely Neurologic: alert, oriented x 3 Skin Exam: normal color Progress - Progress Progress: 01/17/19 19:10 patient had only minimal improvement with SL nitro with pain quickly returning. Nitro drip was started and morphine was given which resolved the chest pain but he was still complaining of severe abdominal pain with radiation to the back. CT of abdomen was ordered but no dissection/bleeding seen. Heparin and plavix ordered and patient is currently comfortable with pain resolved. We have called for transfer and are awaiting call back. - Results/Orders Results/Orders: 01/17/19 16:21 URINE DRUG SCREEN, 7 ASSAY Stat URINALYSIS Stat 01/17/19 16:30 EKG STAT 01/17/19 17:30 Nitroglycerin/D5w IV 50,000 mcg Premix Bottle 1 bottle IVS PRN 01/17/19 17:55 TROPONIN-I Stat Laboratory Results WBC 11.4 K/mm3 (4.8-10.8) H 01/17/19 16:30 RBC 6.39 M/mm3 (4.70-6.10) H 01/17/19 16:30 Hgb 18.3 gm/dL (14.0-18.0) H 01/17/19 16:30 Hct 53.9 % (42.0-52.0) H 01/17/19 16:30 MCV 84.3 fl (80.0-94.0) 01/17/19 16:30 MCH 28.7 pg (27.0-31.0) 01/17/19 16:30 MCHC 34.0 g/dL (33.0-37.0) 01/17/19 16:30 RDW 13.9 % (11.5-14.5) 01/17/19 16:30 Plt Count 316 K/mm3 (130-400) 01/17/19 16:30 MPV 9.1 fl (7.40-10.4) 01/17/19 16:30 Absolute Neuts (auto) 7.80 K/uL (1.8-6.8) H 01/17/19 16:30 Absolute Lymphs (auto) 2.40 K/uL (1.0-3.4) 01/17/19 16:30 Absolute Monos (auto) 0.90 K/uL (0.2-0.8) H 01/17/19 16:30 Absolute Eos (auto) 0.20 K/uL (0.0-0.4) 01/17/19 16:30 Absolute Basos (auto) 0.10 K/uL (0.0-0.1) 01/17/19 16:30 Neutrophils % 68.9 % (42.0-78.0) 01/17/19 16:30 Lymphocytes % 21.0 % (20.0-50.0) 01/17/19 16:30 Monocytes % 7.7 % (2.0-9.0) 01/17/19 16:30 Eosinophils % 1.5 % (1.0-5.0) 01/17/19 16:30 Basophils % 0.9 % (0.0-2.0) 01/17/19 16:30 Sodium 138 mmol/L (135-145) 01/17/19 16:30 Potassium 4.3 mmol/L (3.6-5.0) 01/17/19 16:30 Chloride 107 mmol/L (101-111) 01/17/19 16:30 Carbon Dioxide 17 mmol/L (21-31) L 01/17/19 16:30 Anion Gap 18.3 (12-18) H 01/17/19 16:30 BUN 16 mg/dL (7-18) 01/17/19 16:30 Creatinine 1.50 mg/dL (0.6-1.3) H 01/17/19 16:30 BUN/Creatinine Ratio 10.7 (10-20) 01/17/19 16:30 Random Glucose 112 mg/dL (70-105) H 01/17/19 16:30 Serum Osmolality 277.6 mOsm/L (275-295) 01/17/19 16:30 Calcium 10.1 mg/dL (8.4-10.2) 01/17/19 16:30 Magnesium 2.2 mg/dL (1.8-2.5) 01/17/19 16:30 Total Bilirubin 2.0 mg/dL (0.2-1.0) H 01/17/19 16:30 AST 24 IU/L (10-42) 01/17/19 16:30 ALT 14 IU/L (10-60) 01/17/19 16:30 Alkaline Phosphatase 68 IU/L (42-121) 01/17/19 16:30 Creatine Kinase 168 IU/L (38-174) 01/17/19 16:30 CK-MB (CK-2) 7.5 ng/mL (0.0-4.4) H* 01/17/19 16:30 CK-MB (CK-2) % 4.46 % (0.0-3.5) H 01/17/19 16:30 Troponin I 0.07 ng/mL (0.01-0.05) H* 01/17/19 16:30 Serum Total Protein 8.0 gm/dL (6.4-8.2) 01/17/19 16:30 Albumin 4.6 g/dl (3.2-5.5) 01/17/19 16:30 Globulin 3.4 gm/dL (2.3-3.5) 01/17/19 16:30 Albumin/Globulin Ratio 1.4 (1.1-1.9) 01/17/19 16:30 Amylase 27 U/L (28-100) L 01/17/19 16:30 Lipase 35 U/L (22-51) 01/17/19 16:30 Patient Name: DALE HA Gender: Male Date of : 1970 Referring Physician: TYRONE WHITLOCK Organization: [facility] Accession Number: [id number] Requested Date: January 17, 2019 17:59 Report Status: Final Requested Procedure: 1 Procedure Description: Abdoment/Pelvis w/o Contrast Modality: CT Findings Reporting MD: Mayda Long MD: Not available Dictation Time: Director Of Admissions: Not available Computer Teacher Date: EXAM DESCRIPTION: Abdoment/Pelvis w/o Contrast CLINICAL HISTORY: 48 years Male severe pain to back with elevated troponin I COMPARISON: 11/27/2018 TECHNIQUE: Contiguous axial images obtained through the abdomen and pelvis without IV contrast. Reformatted images obtained. This exam was performed according to our department optimization program which includes automated exposure control, adjustment of the mA and/or kv according to patient size and/or use of iterative reconstruction technique. FINDINGS: The lung bases are clear. The liver appears unremarkable. The spleen and pancreas appear unremarkable. No adrenal masses. Low-attenuation lesion in the superior pole the left kidney consistent with a simple cyst seen on previous CT. No hydronephrosis or obstructive uropathy and no stones are noted. The gallbladder is present with cholelithiasis. Possibility of acute cholecystitis is not excluded. No aneurysmal dilatation of the aorta. No bowel obstruction. There is no evidence of appendicitis. Appendix appears unremarkable. Vascular calcification. Fat-containing inguinal hernias. No free pelvic fluid. IMPRESSION: Cholelithiasis without obvious gallbladder wall thickening but there is some indistinctness along the wall. If there is concern for cholecystitis recommend nuclear medicine study or ultrasound [facility] [address] [place] [address], [address] [place], [place] T [phone] F [phone] [email or web address] - Report exported on Jan 17, 2019 19:08:39 -[id number] - Page 2 of 2 Unenhanced aorta is normal in caliber No additional evidence of acute process Electronically signed by: Mayda Long MD 01/17/2019 6:51 PM CDT Patient Name: DALE HA Gender: Male Date of : 1970 Referring Physician: TYRONE WHITLOCK Organization: [facility] Accession Number: [id number] Requested Date: January 17, 2019 16:21 Report Status: Final Requested Procedure: 1 Procedure Description: Chest,1 View Modality: CR Findings Reporting MD: Sailaja Latham MD: Not available Dictation Time: Director Of Admissions: Not available Computer Teacher Date: EXAM: XR Chest, 1 View CLINICAL HISTORY: 48 years old and is Male; chest pain TECHNIQUE: Frontal view of the chest. COMPARISON: 11/30/2018 FINDINGS: Limitations: None. Lungs: Unremarkable. No consolidation. Pleural space: Unremarkable. No pneumothorax. Heart: Unremarkable. No cardiomegaly. Mediastinum: Unremarkable. Bones/joints: Unremarkable. IMPRESSION: No abnormality noted. Electronically signed by: Sailaja Latham MD 01/17/2019 4:38 PM - EKG/XRAY/CT EKG: Sinus, Tachy, no ST T wave changes, nonspecific ST T wave Chg Departure - Departure Clinical Impression: Elevation of cardiac enzymes, NSTEMI (non-ST elevated myocardial infarction) Disposition: Transfer to Hospital Condition: Fair Departure Forms: ED Discharge - Pt. Copy, Patient Portal Self Enrollment Instructions: DI for Chest Pain Transfer to Outside Facility - Transfer Information Accepting Provider:: Dr. Cohen Accepting Facility: [facility] Reason for Transfer: specialized care not available
--- NOTE | 2019-01-17 16:40 | RAD ---
EXAM: XR Chest, 1 View CLINICAL HISTORY: 48 years old and is Male; chest pain TECHNIQUE: Frontal view of the chest. COMPARISON: 11/30/2018 FINDINGS: Limitations: None. Lungs: Unremarkable. No consolidation. Pleural space: Unremarkable. No pneumothorax. Heart: Unremarkable. No cardiomegaly. Mediastinum: Unremarkable. Bones/joints: Unremarkable. IMPRESSION: No abnormality noted. Electronically signed by: Sailaja Latham MD 01/17/2019 4:38 PM CDT
[2019-01-17] MEDS ORDERED: SODIUM CHLORIDE 0.9% 1000ML 1,000 ML IVS ONE (16:45)
[2019-01-17] MEDS ORDERED: NITROGLYCERIN/D5W IV 50,000 MCG in PREMIX BOTTLE 1 BOTTLE IVS SCH (17:30)
[2019-01-17] MEDS ORDERED: NITROGLYCERIN/D5W IV 250 ML IVS ONE (17:40)
[2019-01-17] MEDS ORDERED: MORPHINE SULFATE INJ 10 MG/ML VIAL IV ONE (17:59)
--- NOTE | 2019-01-17 18:53 | CT ---
EXAM DESCRIPTION: Abdoment/Pelvis w/o Contrast CLINICAL HISTORY: 48 years Male severe pain to back with elevated troponin I COMPARISON: 11/27/2018 TECHNIQUE: Contiguous axial images obtained through the abdomen and pelvis without IV contrast. Reformatted images obtained. This exam was performed according to our department optimization program which includes automated exposure control, adjustment of the mA and/or kv according to patient size and/or use of iterative reconstruction technique. FINDINGS: The lung bases are clear. The liver appears unremarkable. The spleen and pancreas appear unremarkable. No adrenal masses. Low-attenuation lesion in the superior pole the left kidney consistent with a simple cyst seen on previous CT. No hydronephrosis or obstructive uropathy and no stones are noted. The gallbladder is present with cholelithiasis. Possibility of acute cholecystitis is not excluded. No aneurysmal dilatation of the aorta. No bowel obstruction. There is no evidence of appendicitis. Appendix appears unremarkable. Vascular calcification. Fat-containing inguinal hernias. No free pelvic fluid. IMPRESSION: Cholelithiasis without obvious gallbladder wall thickening but there is some indistinctness along the wall. If there is concern for cholecystitis recommend nuclear medicine study or ultrasound Unenhanced aorta is normal in caliber No additional evidence of acute process Electronically signed by: Mayda Long MD 01/17/2019 6:51 PM CDT
[2019-01-17] MEDS ORDERED: HEPARIN SODIUM (PORCINE) 5,000 U/ML VIAL IV ONE (19:00)
[2019-01-17] MEDS ORDERED: CLOPIDOGREL 75 MG TAB PO ONE (19:00)
[2019-01-17 20:27] VITALS: BP 142/83; TEMP 97.4; O2SAT 95
== END 2019-01-17 20:00 | disposition short-term general hospital (02) ==
LOC: SUPCPDRO 15:59 → ER 15:59
DX: I21.4 Non-ST elevation (NSTEMI) myocardial infarction (principal); R79.89 Other specified abnormal findings of blood chemistry; K80.20 Calculus of gallbladder without cholecystitis without obstruction; I25.2 Old myocardial infarction; E78.00 Pure hypercholesterolemia, unspecified; I10 Essential (primary) hypertension; J45.909 Unspecified asthma, uncomplicated; Z87.891 Personal history of nicotine dependence; Z88.8 Allergy status to other drugs, medicaments and biological substances
CPT/HCPCS: 71045; 74176; 80053; 82150; 82550; 82553; 83690; 83735; 84484; 85025; 93005; J1644; J7030

== ENCOUNTER 2019-03-21 21:04 | Inpatient (IN) | payer SELFPAY ==
[2019-03-21] MEDS ORDERED: MORPHINE SULFATE INJ 10 MG/ML VIAL IV ONE ×2 (21:25→22:38)
--- NOTE | 2019-03-21 21:33 | ED.PDOC ---
History of Present Illness - General Chief Complaint: Abdominal Pain Stated Complaint: abd and back pain Time Seen by Provider: 03/21/19 21:21 - History of Present Illness Initial Comments: Pt is a 48 y.o. w/ pmh of CAD and methamphetamine abuse who presents to the ED c/o severe epigastric pain radiating to his b/l flanks. Pain is 10/10 in severity, sharp in nature and constant. He has had this pain a couple months before and was told it might be related to his gall bladder. He was eating when the pain developed tonight. Reports using meth 3 days prior. Denies cp, sob, fevers, chills, n/v/d. Review of Systems - Review of Systems Constitutional: Denies: chills, fever EENTM: States: no symptoms reported Respiratory: States: no symptoms reported Cardiology: States: no symptoms reported Gastrointestinal/Abdominal: States: abdominal pain. Denies: vomiting Genitourinary: States: no symptoms reported Musculoskeletal: States: no symptoms reported Skin: States: no symptoms reported Neurological: States: no symptoms reported Endocrine: States: no symptoms reported Hematologic/Lymphatic: States: no symptoms reported Past Medical History (General) - Patient Medical History Hx Stroke: No Hx Asthma: Yes Hx of COPD: No Hx Cardiac Disorders: Yes - [place] x 2; hypercholesterolemia Hx Congestive Heart Failure: No Hx Hypertension: Yes Hx Diabetes: No Hx Cancer: No Hx MRSA: No Surgical History: no surgical history - Vaccination History Hx Tetanus, Diphtheria Vaccination: No Hx Influenza Vaccination: No Hx Pneumococcal Vaccination: No - Social History Hx Tobacco Use: Yes Hx Alcohol Use: No Hx Substance Use: Yes Hx Substance Use Treatment: Yes Hx Depression: No Hx Physical Abuse: No Hx Emotional Abuse: No - Female History Patient : No Family Medical History - Family History Father Living Status: Still Living Hx Family Hypertension: Yes Hx Cardiac Disease: Yes - multiple family members Physical Exam - Physical Exam General Appearance: Anxious, Obvious distress Eyes, Ears, Nose, Throat Exam: normal ENT inspection, pharynx normal Neck: non-tender, supple Respiratory: chest non-tender, lungs clear Cardiovascular/Chest: no edema, tachycardia Peripheral Pulses: 2+ Gastrointestinal/Abdominal: guarding, tenderness Rectal Exam: deferred Back Exam: normal inspection, no CVA tenderness Extremity: normal range of motion, non-tender Neurologic: no motor/sensory deficits, alert Skin Exam: normal color, warm/dry Lymphatic: no adenopathy Progress - Progress Progress: 03/21/19 21:34 MDM Patient w/ h/o CAD, meth abuse presenting with acute onset generalized abd pain. Pain appears out of proportion to exam. Plan for abd labs w/ CTA for possible vascular etiology of symptoms. Will treat symptoms, reassess. 03/21/19 22:30 Delay in lab work due to difficult IV placement, central line had to be placed. 03/21/19 23:40 03/21/19 23:57 Troponin appears at baseline. 03/22/19 00:[address] Ayala with general surgery who recommends antibiotics and he will consult on patient. Spoke with Lashawn Mckinney regarding admission. She will f/u with Dr. Ayala. Also informed hospitalist of need for central line to be removed as soon as peripheral IV's can be established. 03/22/19 00:37 - Results/Orders Results/Orders: 03/21/19 22:49 CTA Chest [CT] Stat 03/21/19 23:15 Hold Metformin x 48Hrs [id number] Abdomen/Pelvis w/Contrast [CT] Stat Laboratory Results - last 24 hr 03/21/19 03/21/19 03/21/19 21:23 21:23 21:24 WBC 9.1 RBC 5.37 Hgb 15.0 Hct 44.6 MCV 83.1 MCH 28.0 MCHC 33.7 RDW 13.1 Plt Count 322 MPV 9.0 Absolute Neuts (auto) 6.30 Absolute Lymphs (auto) 2.10 Absolute Monos (auto) 0.50 Absolute Eos (auto) 0.10 Absolute Basos (auto) 0.10 Neutrophils % 69.1 Lymphocytes % 23.0 Monocytes % 5.2 Eosinophils % 1.3 Basophils % 1.4 Sodium 141 Potassium 4.0 Chloride 108 Carbon Dioxide 21 Anion Gap 16.0 BUN 12 Creatinine 1.03 BUN/Creatinine Ratio 11.7 Random Glucose 118 H Serum Osmolality 282.1 Lactic Acid Calcium 8.6 Total Bilirubin 0.3 AST 18 ALT 11 Alkaline Phosphatase 59 Troponin I 0.06 H Serum Total Protein 6.3 L Albumin 3.4 Globulin 2.9 Albumin/Globulin Ratio 1.2 Lipase 21 L 03/21/19 21:25 WBC RBC Hgb Hct MCV MCH MCHC RDW Plt Count MPV Absolute Neuts (auto) Absolute Lymphs (auto) Absolute Monos (auto) Absolute Eos (auto) Absolute Basos (auto) Neutrophils % Lymphocytes % Monocytes % Eosinophils % Basophils % Sodium Potassium Chloride Carbon Dioxide Anion Gap BUN Creatinine BUN/Creatinine Ratio Random Glucose Serum Osmolality Lactic Acid 2.1 Calcium Total Bilirubin AST ALT Alkaline Phosphatase Troponin I Serum Total Protein Albumin Globulin Albumin/Globulin Ratio Lipase XR Chest Impression addendum: On further consultation with interventional radiology, chest radiograph findings favor venous positioning of catheter placement. In the setting of a functional catheter, the catheter may be cautiously removed without fluoroscopic guidance. Short-term interval follow-up chest radiograph and chest radiograph following catheter removal is recommended. Electronically signed by: Lily Jerry MD 03/21/2019 11:52 PM CDT CTA chest MPRESSION: No evidence for pulmonary embolus. No aortic dissection or dilatation. No infiltrates seen. Electronically signed by: Cheri Weller MD 03/22/2019 12:01 AM CDT CTA abd/pelvis IMPRESSION: Cholelithiasis with findings concerning for acute cholecystitis. Further evaluation with ultrasound or HIDA scan could be performed. Electronically signed by: Marlys Zuniga MD 03/22/2019 12:04 AM CDT - EKG/XRAY/CT EKG: Unchanged from 01/2019 Comments: Sinus tachycardia @ 108 BPM, normal axis, normal intervals, ST depressions Procedures - Central Line Left Internal jugular vein Central Line Lumen: triple Central Line Procedure Prep: betadine prep, sterile drapes applied, sterile dressing applied Anesthesia: Lidocaine cc's of anesthesia: 5 Complications: Line appears coiled in L subclavian Central Line Post Position: sutured, good blood return Departure - Departure Clinical Impression: Acute cholecystitis due to biliary calculus Disposition: Admit Patient Condition: Good Departure Forms: ED Discharge - Pt. Copy, Patient Portal Self Enrollment Instructions: DI for Abdominal Pain-Adult
[2019-03-21] MEDS ORDERED: SODIUM CHLORIDE 0.9% 1000ML 1,000 ML IVS ONE (21:40)
--- NOTE | 2019-03-21 21:47 | RAD ---
EXAM: XR Chest, 1 View CLINICAL HISTORY: pain TECHNIQUE: Frontal view of the chest. COMPARISON: 01/17/2019. FINDINGS: Limitations: None. Lungs: Unremarkable. No consolidation. Pleural space: Unremarkable. No pneumothorax. Heart: Unremarkable. No cardiomegaly. Mediastinum: Unremarkable. Bones/joints: Unremarkable. IMPRESSION: No acute findings. Electronically signed by: Sailaja Latham MD 03/21/2019 9:46 PM CDT
[2019-03-21] MEDS ORDERED: MORPHINE SULFATE INJ 10 MG/ML VIAL IM ONE (21:50)
--- NOTE | 2019-03-21 23:14 | RAD ---
EXAM: Chest,1 View CLINICAL INDICATION: 48-year-old male status post central line placement. TECHNIQUE: Single view, AP portable chest was obtained. COMPARISON: 03/21/2019. FINDINGS: Unremarkable cardiac and mediastinal silhouette. Heart size is normal. Lungs are clear without focal opacity, pneumothorax or pleural effusions. The visualized bones are within normal limits. Central line is identified via a LEFT internal jugular approach with aberrant positioning. The body of the catheter appears to be coiled overlying the projection of the medial clavicle, unclear whether the catheter is coiled in an intravascular or external location, however suspected coiled within the internal jugular or LEFT brachiocephalic vein. The tip of the catheter terminates just above the level of the aortic arch. Positioning may be present within the proximal LEFT brachiocephalic vein, however findings are also concerning for atypical positioning within a LEFT sided superior vena cava. The possibility of arterial placement cannot be completely excluded. Consultation with interventional radiology and repositioning under fluoroscopic guidance is recommended. IMPRESSION: 1. No acute cardiopulmonary abnormalities. 2. Aberrant positioning of a LEFT central line catheter as detailed above. Interventional radiology consultation is recommended. Electronically signed by: Lily Jerry MD 03/21/2019 11:12 PM CDT
--- NOTE | 2019-03-22 00:03 | CT ---
EXAM DESCRIPTION: CTA Chest CLINICAL HISTORY: 48 years Male pain COMPARISON: Radiograph of the chest performed on the same day. TECHNIQUE: Images were obtained in axial, sagittal, and coronal planes. Intravenous contrast was administered. This exam was performed according to our departmental dose-optimization program which includes use of Automated Exposure Control, adjustment of the mA and/or kV according to patient size and/or use of iterative reconstruction technique. FINDINGS: No filling defects pulmonary arteries bilaterally. No aortic dissection or dilatation. No pericardial or pleural effusions bilaterally. No pneumothorax. No lung parenchymal infiltrates or nodules seen. Heterogeneous enhancement inferior right lobe of liver anteriorly possibly hemangioma. No acute osseous abnormality. IMPRESSION: No evidence for pulmonary embolus. No aortic dissection or dilatation. No infiltrates seen. Electronically signed by: Cheri Weller MD 03/22/2019 12:01 AM CDT
--- NOTE | 2019-03-22 00:05 | CT ---
EXAM: CT Abdomen and Pelvis With Intravenous Contrast CLINICAL HISTORY: The patient is 48 years old and is Male; abd pain TECHNIQUE: Axial computed tomography images of the abdomen and pelvis with intravenous contrast. Sagittal and coronal reformatted images were created and reviewed. This CT exam was performed using one or more of the following dose reduction techniques: automated exposure control, adjustment of the mA and/or kV according to patient size, and/or use of iterative reconstruction technique. COMPARISON: No relevant prior studies available. FINDINGS: LUNG BASES: Unremarkable. No mass. No consolidation. ABDOMEN: LIVER: Unremarkable. No mass. GALLBLADDER AND BILE DUCTS: The gallbladder is distended. Pericholecystic inflammation is present. Gallstone is present within the neck of the gallbladder. PANCREAS: No ductal dilation. No mass. SPLEEN: Unremarkable. ADRENALS: Unremarkable. No mass. KIDNEYS AND URETERS: A 2.4 cm left renal cyst is present. The kidneys enhance symmetrically. No obstructing renal or ureteral calculus is seen. There is no hydronephrosis or hydroureter of either kidney. STOMACH AND BOWEL: The stomach is distended with food contents. The small bowel is normal in caliber. A moderate amount stool is present throughout colon. A few scattered colonic diverticula are noted without surrounding inflammation. PELVIS: APPENDIX: The appendix is normal in caliber without surrounding inflammation. BLADDER: Unremarkable. No mass. REPRODUCTIVE: Unremarkable as visualized. ABDOMEN and PELVIS: INTRAPERITONEAL SPACE: Unremarkable. No free air. No significant fluid collection. BONES/JOINTS: No acute fracture. SOFT TISSUES: The soft tissues are normal. VASCULATURE: Atherosclerosis of the vasculature is present. The vessels are normal in caliber. No abdominal aortic aneurysm. LYMPH NODES: Unremarkable. No enlarged lymph nodes. IMPRESSION: Cholelithiasis with findings concerning for acute cholecystitis. Further evaluation with ultrasound or HIDA scan could be performed. Electronically signed by: Marlys Zuniga MD 03/22/2019 12:04 AM CDT
[2019-03-22] MEDS ORDERED: cloNIDine HCL 0.1 MG TAB PO ONE (00:14)
[2019-03-22] MEDS ORDERED: PIPERACILLIN/TAZOBACTAM 3.375 GM in SODIUM CHLORIDE 0.9% 100ML 100 ML IVPB ONE (00:18)
[2019-03-22] MEDS ORDERED: PIPERACILLIN/TAZOBACTAM 3.375 GM VIAL IVPB ONE ×3 (00:36→12:26)
[2019-03-22] MEDS ORDERED: SODIUM CHLORIDE 0.9% 100ML 100 ML IVPB ONE ×3 (00:36→12:26)
[2019-03-22] MEDS ORDERED: SODIUM CHLORIDE 0.9% (FLUSH) 10 ML SYG IV PRN (01:18)
[2019-03-22] MEDS ORDERED: ONDANSETRON INJ 4 MG/2 ML VIAL IV PRN (01:22)
[2019-03-22] MEDS ORDERED: ALBUTEROL SULFATE 2.5 MG/3 ML VIAL NEB PRN (01:22)
[2019-03-22] MEDS ORDERED: MORPHINE SULFATE INJ 10 MG/ML VIAL IV PRN (01:22)
[2019-03-22] MEDS ORDERED: IV SET AND CAP CHANGE INJ INJ SCH (01:30)
[2019-03-22] MEDS ORDERED: DEX 5% W/NACL 0.9% 1000ML 0 ML IVS ONE (01:48)
[2019-03-22] MEDS: DEX 5% W/NACL 0.45% 1000ML 1,000 ML IVS PRN ×2 (02:18→10:13)
[2019-03-22] MEDS: PIPERACILLIN/TAZOBACTAM 3.375 GM in SODIUM CHLORIDE 0.9% 100ML 100 ML IVPB SCH ×2 (05:53→12:30)
[2019-03-22] MEDS ORDERED: PANTOPRAZOLE SODIUM IV 40 MG VIAL IV SCH (06:30)
[2019-03-22 13:40] VITALS: BP 115/76; TEMP 98.6
[2019-03-22 14:45] VITALS: O2SAT 98
--- NOTE | 2019-03-22 14:49 | CONS ---
DATE OF CONSULTATION: 03/22/19 REASON FOR CONSULTATION: Cholecystitis. HISTORY OF PRESENT ILLNESS: A 48 year-old male with a history of hypertension presented last night to the Emergency Room with severe epigastric and flank pain 10/10 in severity. He states he has had a history of similar symptoms often brought on by food. This time it did not get better. He denies any fevers or chills. No nausea and no vomiting. No history of black or bloody stools or diarrhea. He does admit to using meth at least 3 days prior to ED. On discussion he says he does not use it regularly. Denies any other drugs or alcohol abuse. PAST MEDICAL HISTORY: 1. Hypertension as above. PAST SURGICAL HISTORY: Denies any abdominal surgeries. ALLERGIES: IF HE HAS AN ALLERGY HE DID NOT REMEMBER TO WHAT, BUT NOT TO ANTIBIOTICS. FAMILY HISTORY: History of coronary disease in an aunt. REVIEW OF SYSTEMS: Today, he says he feels much better, not having any pain. No nausea or vomiting. No headache. No visual changes. No sore throat, cough or wheeze. No chest pain or palpitations. Gastrointestinal is negative. Genitourinary no frequency, dysuria or hematuria. Extremities no weakness, lesions or other complaints. PHYSICAL EXAMINATION: VITAL SIGNS: Afebrile. Vital signs are normal. GENERAL: He is just waking up but he is conscious, alert and well oriented in no distress. HEENT: Head is normocephalic and atraumatic. Pupils are equal and reactive. Sclera nonicteric. Oral mucosa moist. NECK: Supple. No lymphadenopathy, jugular venous distention or thyromegaly. CHEST: Clear bilaterally. HEART: Regular rate and rhythm. No murmurs, rubs, or gallops. ABDOMEN: Soft, non-tender. No Mccoy's sign. No CVA tenderness. No masses. No hernias. EXTREMITIES: No clubbing, cyanosis or edema. LABORATORY: White count 9, hematocrit 44, platelets 322. CMP is normal. Urine toxicology shows positive for methamphetamine and negative otherwise. RADIOGRAPHS: Chest x-ray initially was done as followup of a central line done that showed a small loop in the central line in his left subclavian that is nonkinked. It should be fine for this temporarily. The CAT scan of his chest is negative. CAT scan of the abdomen shows distended gallbladder with a stone in the neck. There is not significant pericholecystic edema or fluid. IMPRESSION: 1. Cholecystitis, resolving. The patient currently is asymptomatic. He is on antibiotics. PLAN: Start with a clear liquid diet. If he continues to be asymptomatic he can go home today. He does not have insurance. I did discuss with him it would be of benefit for him to seek insurance where he does not incur a lot of bills because the gallbladder will need to come out, and hopefully not emergently. I would be happy to see him in followup, but again clear liquid diet today. Social Service consultation and discharge later if he remains asymptomatic. #[id number] MTDD
--- NOTE | 2019-03-22 20:23 | SSS ---
SUPERVISING PHYSICIAN: Henry Hdz M.D. DISCHARGE DIAGNOSIS: 1. Acute cholecystitis. 2. Epigastric abdominal pain that has been on and off for 1 year secondary to #1. 3. Methamphetamine abuse. 4. History of multiple myocardial infarctions most likely secondary to #3. 5. Hypertension with poor compliance. He is presently on no medications. 6. Tobacco abuse. 7. Asthma. HISTORY OF PRESENT ILLNESS: This is a 48 year-old male patient with a history of coronary artery disease and methamphetamine use. He came to the Emergency Room due to severe epigastric pain that radiated to bilateral flanks. It was sharp in nature but inconstant. He has had this pain off and on for the last year, although he says no one has ever told him it was his gallbladder. He also uses meth at least 1 time weekly and has had multiple heart attacks. In fact, he was care flighted to [facility] a couple of months ago due to an FL. In the Emergency Room , his initial temperature was 97.6 with a heart rate of 108, blood pressure 178/112, respiratory rate 20, O2 sat 100% on room air. Lab was done and CBC was unremarkable. Chemistry showed normal electrolytes with glucose of 118. Troponin was 0.06 with serum total protein 6.3 and lipase 21. Lactic acid was 2.1. Urinalysis is clear. UDS was negative except for he was positive for methamphetamines. Chest x-ray showed no acute findings. CTA of the chest and thorax showed no evidence for pulmonary embolus. No aortic dissection or dilation. No infiltrate seen. Abdominal/pelvis CT showed cholelithiasis with findings concerning for acute cholecystitis. Further evaluation with ultrasound or HIDA scan should be performed. A central line was placed due to the inability of getting a central line a followup chest x-ray was done. The followup chest x-ray showed no acute cardiopulmonary abnormalities and aberrant positioning of left central line catheter that appeared to be coiled overlying the projection of the medial clavicle. Unclear where the catheter is coiled in an intravascular or external location, however suspected coiled within the internal jugular or left brachial cephalic vein. The tip of the catheter terminated just above the level of the aortic arch. The patient received some fluids as well as started on Zosyn. The E. R. doctor called Dr. Borja, general surgeon, and he felt that the patient could be managed overnight in the hospital and that he could followup after antibiotics with him. I was then called for hospital admission. I also spoke with Dr. Borja and he told me the same thing. We discussed that the patient could be observed overnight and continued on Zosyn, and that he would followup with Dr. Borja after discharge. The E. R. physician said that the central line flushed without any problems and we all felt like the catheter would be okay to use at least overnight. PAST MEDICAL HISTORY: 1. Asthma. 2. Multiple myocardial infarctions. 3. Hypertension presently on no medications although he does usually get his antihypertensive filled during his Emergency Room visits. 4. Tobacco abuse. 5. Methamphetamine abuse. 6. Coronary artery disease. PAST SURGICAL HISTORY: None. OUTPATIENT MEDICATIONS: None. ALLERGIES: LOSARTAN. SOCIAL HISTORY: He lives in [place] with a friend. He is presently unemployed. He is single. He smokes 1 pack of cigarettes daily. He denies any ETOH use. He uses methamphetamines 1 to 2 times weekly. REVIEW OF SYSTEMS: GENERAL: Negative for fevers, chills or weight changes. HEENT: Negative for sinus symptoms, ear pain, vision changes or sore throat. RESPIRATORY: Negative for coughing, wheezing or shortness of breath. CARDIAC: Negative for chest pain, palpitations or tachycardia. GASTROINTESTINAL: As per history of present illness. GENITOURINARY: Negative for hematuria, dysuria or polyuria. SKIN: Negative for lesions or rashes. NEUROLOGIC: Negative for weakness, headaches or seizures. PHYSICAL EXAMINATION: VITAL SIGNS: Temperature 8.2, heart rate 87, blood pressure 135/86, respiratory rate 16, O2 sat 95% on room air. GENERAL: This is a 48 year-old male patient. He is disheveled. He is in no acute distress. HEENT: Normocephalic and atraumatic . Pupils are equal and reactive. NECK: Supple without mass. RESPIRATORY: Essentially clear to auscultation bilaterally. CHEST: There is equal rise and fall of the chest with inspiration and expiration. CARDIOVASCULAR: Regular rate and rhythm. GASTROINTESTINAL: Abdomen is soft, nondistended. Mildly tender in the epigastric to the right upper quadrant. BACK: Normal inspection. No CVA tenderness. EXTREMITIES: No clubbing, cyanosis or edema. NEUROLOGIC: He is awake, alert and oriented times three. SKIN: Warm and dry. RECTAL: Exam is deferred. LABORATORY: This morning his electrolytes were within normal limits. Amylase 18, lipase 21. CBC was unremarkable. All other labs and films have been reviewed via the EMR. HOSPITAL COURSE: The patient was placed in observation. He was started on Zosyn and placed on bowel rest. He also received some fluids overnight. This morning his diet was advanced. He tolerated it without any problem. Dr. Borja saw him this morning and felt that he could be discharged on 5 additional days of Augmentin. He also consulted Certified Pest Control Technician for help with his medical issues. He will be discharged today in stable condition. DISCHARGE PLAN: The patient will be discharged home in stable condition. He is to utilize a low fat diet. He is to increase his activity as tolerated. It is recommended that he get a primary care physician and I have discussed with the patient that he needs to followup at [facility] for followup medical care as well as followup with Dr. Borja to followup for the cholecystitis. If he goes to [facility] he may be able to get assistance for his medical care. He is to return to the hospital or followup at [facility] or with Dr. Borja for any problems or complications. DISCHARGE MEDICATIONS: 1. Augmentin. #[id number] MTDD
[2019-03-22] MEDS ORDERED: ENOXAPARIN SODIUM 40 MG/0.4 ML SYG SUBCU SCH (21:00)
== END 2019-03-22 15:21 | disposition home or self-care (01) | DRG 446 ==
LOC: ER 21:04 → MS 03-22 00:41 → OBSVTOIN 03-22 00:41
PROVIDERS: ADMIT Nurse Practitioner Acute Care; ATTEND Nurse Practitioner Acute Care
PROC: BW211ZZ Computerized Tomography (CT Scan) of Abdomen and Pelvis using Low Osmolar Contrast (ICD-10-PCS; principal; 2019-03-21)
PROC: B32T1ZZ Computerized Tomography (CT Scan) of Left Pulmonary Artery using Low Osmolar Contrast (ICD-10-PCS; 2019-03-21)
PROC: B3201ZZ Computerized Tomography (CT Scan) of Thoracic Aorta using Low Osmolar Contrast (ICD-10-PCS; 2019-03-21)
PROC: B32S1ZZ Computerized Tomography (CT Scan) of Right Pulmonary Artery using Low Osmolar Contrast (ICD-10-PCS; 2019-03-21)
PROC: 02HV33Z Insertion of Infusion Device into Superior Vena Cava, Percutaneous Approach (ICD-10-PCS; 2019-03-21)
DX: K80.00 Calculus of gallbladder with acute cholecystitis without obstruction (principal); I10 Essential (primary) hypertension; J45.909 Unspecified asthma, uncomplicated; F17.210 Nicotine dependence, cigarettes, uncomplicated; Z91.14 Patient's other noncompliance with medication regimen; F15.10 Other stimulant abuse, uncomplicated; I25.2 Old myocardial infarction; Z88.8 Allergy status to other drugs, medicaments and biological substances; E78.00 Pure hypercholesterolemia, unspecified

== ENCOUNTER 2019-11-19 13:01 | Emergency (ER) | payer SELFPAY ==
--- NOTE | 2019-11-19 13:13 | ED.PDOC ---
History of Present Illness - General Time Seen by Provider: 11/19/19 13:03 Additional Information: This is a 49-year-old male patient, with her hypertension, patient presents to the ER because of injury to his first digit of the left hand. She said that it happened with a lawnmower, and it happened about a month ago Patient did not seek any medical attention, patient is concerned because there is some skin manifestations and is concerned for possible gangrene, also patient endorsing some pain at the dorsum of the first digit Patient is a smoker He lost his nail during the incident - History of Present Illness Occurred: other - 1 month Pain - Upper Extremity: mild: Hand, left Method of Injury: other - lawnmower Improving Factors: nothing Worsening Factors: nothing Allergies/Adverse Reactions: Allergies Losartan Allergy (Verified 11/19/19 13:19) Home Medications: Ambulatory Orders Acetaminophen W/ Codeine [Tylenol W/ CODEINE #3] 1 ea PO Q6HRS #24 11/19/19 Review of Systems - Review of Systems Constitutional: States: no symptoms reported EENTM: States: no symptoms reported Respiratory: States: no symptoms reported Cardiology: States: no symptoms reported Gastrointestinal/Abdominal: States: no symptoms reported Genitourinary: States: no symptoms reported Musculoskeletal: States: no symptoms reported Skin: States: no symptoms reported Neurological: States: no symptoms reported Endocrine: States: no symptoms reported Hematologic/Lymphatic: States: no symptoms reported Past Medical History (General) - Patient Medical History Hx Seizures: No Hx Stroke: No Hx Asthma: Yes Hx of COPD: No Hx Cardiac Disorders: Yes - [place] x 2; hypercholesterolemia Hx Congestive Heart Failure: No Hx Pacemaker: No Hx Hypertension: Yes Hx Diabetes: No Hx Cancer: No Hx MRSA: No - Vaccination History Hx Tetanus, Diphtheria Vaccination: No Hx Influenza Vaccination: No Hx Pneumococcal Vaccination: No - Social History Hx Tobacco Use: Yes Hx Alcohol Use: No Hx Substance Use: Yes - smoke meth 4 days ago Hx Substance Use Treatment: Yes Hx Depression: No Hx Physical Abuse: No Hx Emotional Abuse: No - Female History Patient : No Family Medical History - Family History Father Living Status: Still Living Hx Family Hypertension: Yes Hx Cardiac Disease: Yes - multiple family members Physical Exam - Physical Exam General Appearance: Alert, Well Developed, Well Groomed, Well Hydrated, Well Nou rished Eyes, Ears, Nose, Throat Exam: PERRL/EOMI Neck: non-tender, full range of motion, supple, normal inspection Cardiovascular/Respiratory: regular rate, rhythm, no M/R/G, normal peripheral pulses, no JVD, normal breath sounds Abdominal Exam: non-tender, no organomegaly Back Exam: normal inspection, no CVA tenderness, no vertebral tenderness Shoulder Exam: normal inspection, non-tender, no evidence of injury, normal ROM Elbow/Forearm Exam: normal inspection Wrist Exam: normal inspection, non-tender, no evidence of injury Hand Exam: nail injury - The area is dry and clean I do not see any pus or sausagelike appearance or any foul-smelling discharge, there is what appears to be a healing nailbed injury Neuro/Tendon: normal sensation, normal motor functions, normal tendon functions Mental Status: alert, oriented x 3, disoriented x 3 Skin Exam: normal color, warm/dry Progress - Progress Progress: 11/19/19 13:47This patient has a injury to his left first digit after he suffered the injury with a Lawnmower. This injury happened a month ago, patient arrived in the ER because she has noticed some dark skin discoloration in the dorsum of the finger, and he was concerned for possible gangrene, there is no evidence of cyanosis no evidence of pus no foul-smelling discharge no necrotic tissue. I have an x-ray that show evidence of a tuft fracture, clearly this is an old fracture at this point since patient does not have any signs of an infection I will prescribe patient some Tylenol 3 for pain, metal splint, and I will have him follow-up with orthopedic surgery/hand specialist Departure - Departure Clinical Impression: Closed fracture of tuft of distal phalanx of finger with delayed healing Disposition: Discharge to Home or Self Care Condition: Fair Instructions: DI for Finger Fracture Diet: resume usual diet, regular diet Prescriptions: Acetaminophen W/ Codeine [Tylenol W/ CODEINE #3] 1 ea PO Q6HRS #24 Home Medications: Ambulatory Orders Acetaminophen W/ Codeine [Tylenol W/ CODEINE #3] 1 ea PO Q6HRS #24 11/19/19
[2019-11-19 13:18] VITALS: O2SAT 97
--- NOTE | 2019-11-19 13:52 | RAD ---
3 radiographs of the left thumb Indication: thumb injury Comparison: None Impression: Comminuted fracturing of the mid to distal shaft and tuft of the first distal phalanx the dominant distal fracture fragment displaced in the volar direction by up to 4 mm. No radiopaque foreign body. Soft tissue swelling present. Moderate osteoarthritis first MCP joint. Electronically signed by: Vishal Art MD 11/19/2019 1:51 PM CDT
[2019-11-19 14:08] VITALS: BP 159/91; TEMP 97.7
== END 2019-11-19 13:59 | disposition home or self-care (01) ==
LOC: ER 13:01
DX: S62.522A Displaced fracture of distal phalanx of left thumb, initial encounter for closed fracture (principal); I10 Essential (primary) hypertension; I25.2 Old myocardial infarction; F17.200 Nicotine dependence, unspecified, uncomplicated; W31.89XA Contact with other specified machinery, initial encounter; Y92.009 Unspecified place in unspecified non-institutional (private) residence as the place of occurrence of the external cause

== ENCOUNTER 2019-12-18 16:04 | Emergency (ER) | payer SELFPAY ==
[2019-12-18] MEDS ORDERED: LIDOCAINE 1% 10 ML VIAL INJ ONE ×2 (16:19→16:23)
[2019-12-18] MEDS ORDERED: IODOFORM PACKING 1/2 INCH 1 EA BTTL TOP ONE (16:24)
--- NOTE | 2019-12-18 16:28 | ED.PDOC ---
History of Present Illness - General Chief Complaint: General Stated Complaint: L thumb swelling/pain Time Seen by Provider: 12/18/19 16:15 Additional Information: Patient is a 49-year-old male who presents to the ED with chief complaint of lef t thumb pain. Patient had a traumatic injury to his thumb approximately 1 month ago and was seen here and diagnosed with a left thumb fracture. At the time his nail was cracked and there was an obvious deficit in his nailbed. Patient was placed in a splint and he indicates that shortly after he left the ED he began to have purulent drainage from the open wound site over the nailbed that has per sisted. Patient was told to follow-up with a hand specialist at his last ED visit but he has not seen any physician since his discharge. Patient indicates that he has been able to manually express pus from the wound site and that had been controlling his symptoms but for the past day or so he has unable to express any pus and his finger is hurting more and throbbing. Patient denies nausea, vomiting, fever, chills, shortness of breath, chest pain, or any other symptoms. Patient does indicate that he smokes methamphetamine and his last time using this drug was 3 days ago. He denies IV drug use. He indicates that his entire thumb from the IP joint distally is painful and swollen but that it is most painful for him around the proximal nailbed margin dorsally. - History of Present Illness Allergies/Adverse Reactions: Allergies Losartan Allergy (Verified 12/18/19 16:57) Home Medications: Ambulatory Orders Acetaminophen W/ Codeine [Tylenol W/ CODEINE #3] 1 ea PO Q6HRS #24 11/19/19 Review of Systems - Review of Systems Constitutional: Denies: chills, fever Respiratory: States: no symptoms reported Cardiology: States: no symptoms reported Gastrointestinal/Abdominal: States: no symptoms reported Musculoskeletal: States: see HPI Skin: States: no symptoms reported Neurological: States: no symptoms reported Endocrine: States: no symptoms reported Hematologic/Lymphatic: States: no symptoms reported All other Systems: Reviewed and Negative Past Medical History (General) - Patient Medical History Hx Seizures: No Hx Stroke: No Hx Asthma: Yes Hx of COPD: No Hx Cardiac Disorders: Yes - [place] x 2; hypercholesterolemia Hx Congestive Heart Failure: No Hx Pacemaker: No Hx Hypertension: Yes Hx Diabetes: No Hx Cancer: No Hx MRSA: No - Vaccination History Hx Tetanus, Diphtheria Vaccination: No Hx Influenza Vaccination: No Hx Pneumococcal Vaccination: No - Social History Hx Tobacco Use: Yes Hx Alcohol Use: No Hx Substance Use: Yes - smoke meth 4 days ago Hx Substance Use Treatment: Yes Hx Depression: No Hx Physical Abuse: No Hx Emotional Abuse: No - Female History Patient : No Family Medical History - Family History Father Living Status: Still Living Hx Family Hypertension: Yes Hx Cardiac Disease: Yes - multiple family members Physical Exam - Physical Exam General Appearance: Alert, Comfortable, No apparent distress Cardiovascular/Respiratory: regular rate, rhythm, no M/R/G Hand Exam: swelling - Patient with diffuse edema to the left thumb from the IP joint distally. His nail is completely missing and the proximal aspect of the nailbed has an ulcer with a scab in the nailbed appears to be completely deformed. There is no discharge from the site. There is moderate tenderness to palpation globally around the nail margin greatest proximally and there is moderate tenderness to palpation over the finger pad although it is less than around the nailbed. Negative erythema noted. Patient is unable to flex his IP joint due to pain. Mental Status: alert, oriented x 3 Skin Exam: normal color, warm/dry, cyanosis Progress - Progress Progress: 12/18/19 17:12 I&D did not reveal any focal abscess, patient with diffuse soft tissue swelling and infection. X-ray reviewed and patient with concern for osteomyelitis. Will place an IV, begin IV antibiotics and transfer to a facility with a hand specialist or plastic surgeon. Patient is agreeable to transfer. 12/18/19 17:[address] Tran, orthopedic surgeon at [facility] who indicates he will consult on patient but patient should be ED to ED transfer. I spoke with Dr. Jimenez, [facility] emergency physician, who accepts patient ED to ED transfer. Procedures - Incision and Drainage #1 Procedure and Prep: betadine prep, sterile drapes applied, irrigated Blade Size: 11 Procedure Comments: Using a hemostat, the proximal nailbed margin was elevated from where the nailbed should be and site probed. No pus was able to be extruded, there was bleeding only. I discussed with patient that he did not have an abscess on the dorsal aspect of his thumb but that we needed to ensure that he did not have a felon and patient agreed to I&D of his thumb pad. Using a 15 blade scalpel a 3 mm incision was made in the central had longitudinally. Using a hemostat the wound was probed and again there was no pus noted. Thumb was irrigated with normal saline and dressed. Patient tolerated procedure well. Departure - Departure Clinical Impression: Osteomyelitis of finger of left hand Time of Disposition: 17:21 Disposition: Transfer to Hospital Condition: Fair Referrals: Patience Arora FNP [Primary Care Provider] - 1-2 Weeks Home Medications: Ambulatory Orders Acetaminophen W/ Codeine [Tylenol W/ CODEINE #3] 1 ea PO Q6HRS #24 11/19/19 Transfer to Outside Facility - Transfer Information Decision to Transfer Date: 12/18/19 Decision to Transfer Time: 17:22 Reason for Transfer: required specialist not available Accepting Provider:: Dr. Jimenez Accepting Facility: [facility]
--- NOTE | 2019-12-18 16:39 | RAD ---
EXAM DESCRIPTION: Fingers,Left CLINICAL HISTORY: 49 years Male, infection COMPARISON: Previous study November 19, 2019 FINDINGS: Abnormal distal phalanx of the left thumb with fracture and wide gap between the fragments suggesting intervening bone destruction. The gap at the fracture site measures 7.5 mm on present study compared to 4.7 mm on previous exam. Findings would suggest open fracture with complicating osteomyelitis and worsening appearance. Avulsion fragment of the base of the proximal phalanx of the thumb is well corticated consistent with old injury. Broad lucency in the distal phalanx measures up to 1 cm. IMPRESSION: Increasing lucency between fragments of fractured distal phalanx of the left thumb worrisome for complicating osteomyelitis. See above. Electronically signed by: Shawn Edouard MD 12/18/2019 4:38 PM CDT
[2019-12-18 16:57] VITALS: BP 167/107; TEMP 98; O2SAT 98
[2019-12-18] MEDS ORDERED: VANCOMYCIN HCL INJ 1,000 MG, VANCOMYCIN HCL INJ 500 MG in SODIUM CHLORIDE 0.9% 250ML 25... IVPB ONE (17:18)
[2019-12-18] MEDS ORDERED: PIPERACILLIN/TAZOBACTAM 3.375 GM in SODIUM CHLORIDE 0.9% 100ML 100 ML IVPB ONE (17:18)
== END 2019-12-18 17:35 | disposition left against medical advice (07) ==
LOC: ER 16:04
DX: M86.8X4 Other osteomyelitis, hand (principal); I10 Essential (primary) hypertension; I25.2 Old myocardial infarction; F17.200 Nicotine dependence, unspecified, uncomplicated

== ENCOUNTER 2019-12-18 18:23 | Emergency (ER) | payer SELFPAY ==
--- NOTE | 2019-12-18 18:33 | ED.PDOC ---
History of Present Illness - General Time Seen by Provider: 12/18/19 18:31 Additional Information: ED progress note: Patient was seen here less than an hour ago and worked up for osteomyelitis in his left thumb. Patient was accepted for transfer to [facility] but patient indicated that he had to deliver his car to his mother and needed to leave and come back. Patient was discharged AMA less than an hour ago and now returns for voluntary transfer to [facility]. He has no new co mplaints. Patient did not receive his vancomycin or Zosyn that was written for him earlier, will reorder now. - History of Present Illness Allergies/Adverse Reactions: Allergies Losartan Allergy (Verified 12/18/19 16:57) Home Medications: Ambulatory Orders Acetaminophen W/ Codeine [Tylenol W/ CODEINE #3] 1 ea PO Q6HRS #24 11/19/19 Review of Systems - Review of Systems Review of Systems: 12/18/19 18:35 No change from exam 2 hours ago. Past Medical History (General) - Patient Medical History Hx Seizures: No Hx Stroke: No Hx Asthma: Yes Hx of COPD: No Hx Cardiac Disorders: Yes - [place] x 2; hypercholesterolemia Hx Congestive Heart Failure: No Hx Pacemaker: No Hx Hypertension: Yes Hx Diabetes: No Hx Cancer: No Hx MRSA: No - Vaccination History Hx Tetanus, Diphtheria Vaccination: No Hx Influenza Vaccination: No Hx Pneumococcal Vaccination: No - Social History Hx Tobacco Use: Yes Hx Alcohol Use: No Hx Substance Use: Yes - smoke meth 4 days ago Hx Substance Use Treatment: Yes Hx Depression: No Hx Physical Abuse: No Hx Emotional Abuse: No - Female History Patient : No Family Medical History - Family History Father Living Status: Still Living Hx Family Hypertension: Yes Hx Cardiac Disease: Yes - multiple family members Physical Exam - Physical Exam General Appearance: Other - Physical exam unchanged from 2 hours ago. Departure - Departure Clinical Impression: Finger osteomyelitis, left Time of Disposition: 18:34 Disposition: Transfer to Hospital Condition: Fair Home Medications: Ambulatory Orders Acetaminophen W/ Codeine [Tylenol W/ CODEINE #3] 1 ea PO Q6HRS #24 11/19/19 Transfer to Outside Facility - Transfer Information Decision to Transfer Date: 12/18/19 Decision to Transfer Time: 18:34 Reason for Transfer: required specialist not available Accepting Facility: [facility]
[2019-12-18] MEDS: MORPHINE SULFATE INJ 10 MG/ML VIAL IV ONE (19:27)
[2019-12-18] MEDS: PIPERACILLIN/TAZOBACTAM 3.375 GM in SODIUM CHLORIDE 0.9% 100ML 100 ML IVPB ONE (19:28)
[2019-12-18] MEDS: ONDANSETRON INJ 4 MG/2 ML VIAL IV ONE (19:28)
[2019-12-18 19:30] VITALS: BP 156/100; TEMP 97.9; O2SAT 99
[2019-12-18] MEDS: VANCOMYCIN HCL INJ 1,000 MG, VANCOMYCIN HCL INJ 500 MG in SODIUM CHLORIDE 0.9% 250ML 25... IVPB ONE (19:31)
== END 2019-12-18 19:40 | disposition short-term general hospital (02) ==
LOC: ER 18:23
DX: M86.8X4 Other osteomyelitis, hand (principal)
CPT/HCPCS: J2270; J2405; J2543; J3370; J7050

== ENCOUNTER 2019-12-25 19:02 | Emergency (ER) | payer SELFPAY ==
[2019-12-25] MEDS ORDERED: PROMETHAZINE HCL INJ 25 MG in SODIUM CHLORIDE 0.9% 50ML 50 ML IVPB ONE (19:16)
[2019-12-25] MEDS ORDERED: KETOROLAC TROMETHAMINE INJ 30 MG/ML VIAL IV ONE (19:16)
[2019-12-25] MEDS ORDERED: SODIUM CHLORIDE 0.9% 1000ML 1,000 ML IVS ONE ×2 (19:16→20:10)
[2019-12-25] MEDS ORDERED: NITROGLYCERIN 0.4 MG 25 EA TAB SL ONE (19:32)
[2019-12-25] MEDS ORDERED: amLODIPine BESYLATE 5 MG TAB PO ONE (21:16)
[2019-12-25] MEDS ORDERED: LOSARTAN POTASSIUM 25 MG TAB ONE (21:25)
[2019-12-25 22:07] VITALS: BP 156/88; O2SAT 92
[2019-12-25 22:08] VITALS: TEMP 97.3
--- NOTE | 2019-12-25 22:16 | ED.PDOC ---
History of Present Illness - General Chief Complaint: Abdominal Pain Stated Complaint: I think I am having a gallbladder attack Time Seen by Provider: 12/25/19 19:12 Source: patient Exam Limitations: no limitations - History of Present Illness Initial Comments: The patient is a 49-year-old male presented emergency room secondary to fairly rapid onset abdominal pain over the last couple of hours. Abdominal pain is primarily on the right side. He has had some nausea but no vomiting. Patient is diaphoretic. The patient was just in [facility] for IV antibiotics for osteomyelitis of his thumb. He got out yesterday and promptly started back doing methamphetamine. The patient has of course not slept much or drink much water since. The patient is significantly hypertensive upon arrival. No chest pain. No syncope. No evidence of any new trauma. Chronic changes to the left thumb. Timing/Duration: 1-3 hours Severity: severe Improving Factors: nothing Worsening Factors: eating Associated Symptoms: diaphoresis, loss of appetite Allergies/Adverse Reactions: Allergies Losartan Allergy (Verified 12/18/19 16:57) Home Medications: Ambulatory Orders Acetaminophen W/ Codeine [Tylenol W/ CODEINE #3] 1 ea PO Q6HRS #24 11/19/19 Review of Systems - Review of Systems Constitutional: States: no symptoms reported EENTM: States: no symptoms reported Respiratory: States: no symptoms reported Cardiology: States: no symptoms reported Gastrointestinal/Abdominal: States: abdominal pain Genitourinary: States: no symptoms reported Musculoskeletal: States: no symptoms reported Skin: States: no symptoms reported Neurological: States: no symptoms reported Endocrine: States: flushing Hematologic/Lymphatic: States: no symptoms reported All other Systems: No Change from Baseline Past Medical History (General) - Patient Medical History Hx Seizures: No Hx Stroke: No Hx Asthma: Yes Hx of COPD: No Hx Cardiac Disorders: Yes - [place] x 2; hypercholesterolemia Hx Congestive Heart Failure: No Hx Pacemaker: No Hx Hypertension: Yes Hx Diabetes: No Hx Cancer: No Hx MRSA: No - Vaccination History Hx Tetanus, Diphtheria Vaccination: No Hx Influenza Vaccination: No Hx Pneumococcal Vaccination: No - Social History Hx Tobacco Use: Yes Hx Alcohol Use: No Hx Substance Use: Yes - smoke meth 4 days ago Hx Substance Use Treatment: Yes Hx Depression: No Hx Physical Abuse: No Hx Emotional Abuse: No - Female History Patient : No Family Medical History - Family History Father Living Status: Still Living Hx Family Hypertension: Yes Hx Cardiac Disease: Yes - multiple family members Physical Exam - Physical Exam General Appearance: Alert, Obvious distress, Ill Appearing Ears, Nose, Throat: hearing grossly normal, normal ENT inspection Neck: full range of motion, supple Respiratory: lungs clear, normal breath sounds, no respiratory distress, no accessory muscle use Cardiovascular/Chest: normal peripheral pulses, regular rate, rhythm - Borderline sinus tachycardia, no edema Peripheral Pulses: radial,right: 2+, radial,left: 2+, dorsalis pedis,right: 2+, dorsalis pedis,left: 2+ Gastrointestinal/Abdominal: soft, other - Right-sided discomfort to palpation. Rectal Exam: deferred Back Exam: no CVA tenderness, no vertebral tenderness Extremity: normal range of motion, non-tender, normal inspection, no pedal edema, normal capillary refill Neurologic: product safety and standards engineer II-XII nml as tested, alert, normal mood/affect, oriented x 3 Skin Exam: diaphoresis Comments: Vital Signs - 24 hr 12/25/19 12/25/19 12/25/19 19:30 19:32 19:45 Temperature 98.2 F Pulse Rate [ 104 H 100 H 98 H monitor] Respiratory 20 20 16 Rate Blood Pressure 182/116 175/121 147/82 [Right Arm] O2 Sat by Pulse 100 Oximetry 12/25/19 12/25/19 12/25/19 21:00 22:00 22:07 Temperature 97.3 F L Pulse Rate [ 111 H 108 H monitor] Respiratory 14 14 Rate Blood Pressure 173/106 156/88 [Right Arm] O2 Sat by Pulse 96 92 L Oximetry Progress - Progress Progress: 12/25/19 22:18 The patient is a 49-year-old male presented emergency room with what is most likely methamphetamine induced abdominal pain, along with resultant hypertension, acute renal insufficiency, dehydration and lactic acidosis. The patient has received 2 L of IV fluids, a dose of Toradol and a dose of morphine. 1 dose of nitroglycerin actually made the abdominal pain much better as well as the blood pressures. The patient has been dosed with a dose of his losartan as well for the hypertension and a small dose of amlodipine. The patient has been resting comfortably for the past several hours. The patient does have a very mild elevation of his troponin but looking back over his history he has had at least 8 or 9 cardiac enzymes drawn all of which have shown a chronic elevation of the troponin. The patient is apparently not a candidate for cardiology intervention with his continued methamphetamine abuse. He is to continue his outpatient antibiotics for his osteomyelitis. He does need to consider seeking help for his substance abuse issues. Blood pressures have improved and pain is controlled. I do want the patient to follow back up with his primary care doctor tomorrow. He obviously needs to avoid methamphetamine. His renal function will need to be monitored over the coming weeks. He does need to increase his fluid intake. He does need to follow his blood pressures. ER warnings are given. [email or web address] [phone] - Results/Orders Results/Orders: Final read of abdominal series is still pending as the communication lines are still down. I see no evidence of overt obstruction and no evidence of free air. No evidence of pneumonia in the visualized lung guardado. EKG shows normal sinus rhythm at 100 bpm. Normal axis. Criteria is present for LVH. Normal R wave progression. Left atrial dilation. Borderline prolonged QT interval. No definitive ST segment or T wave changes indicative of acute ischemia. Laboratory Tests 12/25/19 12/25/19 12/25/19 19:34 19:34 19:34 WBC 10.7 RBC 6.42 H Hgb 17.6 Hct 52.6 H MCV 82.0 MCH 27.4 MCHC 33.4 RDW 15.6 H Plt Count 288 MPV 8.5 Absolute Neuts (auto) 7.40 H Absolute Lymphs (auto) 2.30 Absolute Monos (auto) 0.70 Absolute Eos (auto) 0.20 Absolute Basos (auto) 0.10 Neutrophils % 68.8 Lymphocytes % 21.2 Monocytes % 6.8 Eosinophils % 1.8 Basophils % 1.4 PT INR PTT (SP) D-Dimer, Quantitative Sodium 139 Potassium 3.5 L Chloride 106 Carbon Dioxide 23 Anion Gap 13.5 BUN 17 Creatinine 1.33 H BUN/Creatinine Ratio 12.8 Random Glucose 157 H Serum Osmolality 282.3 Lactic Acid 3.0 H* Calcium 9.2 Magnesium Total Bilirubin 1.0 AST 22 ALT 18 Alkaline Phosphatase 88 Creatine Kinase 157 CK-MB (CK-2) 9.3 H* CK-MB (CK-2) % Not Reportable Troponin I 0.09 H* B-Natriuretic Peptide 351.0 H* Serum Total Protein 7.6 Albumin 4.3 Globulin 3.3 Albumin/Globulin Ratio 1.3 Amylase 18 L Lipase 29 Urine Color Urine Appearance Urine pH Ur Specific [place] Urine Protein Urine Glucose (UA) Urine Ketones Urine Blood Urine Nitrite Urine Bilirubin Urine Urobilinogen Ur Leukocyte Esterase Urine RBC Urine WBC Ur Epithelial Cells Calcium Oxalate Crystal Urine Bacteria Urine Mucus 12/25/19 12/25/19 12/25/19 19:34 19:34 21:02 WBC RBC Hgb Hct MCV MCH MCHC RDW Plt Count MPV Absolute Neuts (auto) Absolute Lymphs (auto) Absolute Monos (auto) Absolute Eos (auto) Absolute Basos (auto) Neutrophils % Lymphocytes % Monocytes % Eosinophils % Basophils % PT 12.7 H INR 1.28 H PTT (SP) 25.2 D-Dimer, Quantitative < 131 L Sodium Potassium Chloride Carbon Dioxide Anion Gap BUN Creatinine BUN/Creatinine Ratio Random Glucose Serum Osmolality Lactic Acid Calcium Magnesium 1.8 Total Bilirubin AST ALT Alkaline Phosphatase Creatine Kinase CK-MB (CK-2) CK-MB (CK-2) % Troponin I B-Natriuretic Peptide Serum Total Protein Albumin Globulin Albumin/Globulin Ratio Amylase Lipase Urine Color Yellow Urine Appearance Clear Urine pH 5.5 Ur Specific [place] >= 1.030 Urine Protein 30 Urine Glucose (UA) Negative Urine Ketones Negative Urine Blood Trace-lysed H Urine Nitrite Negative Urine Bilirubin Negative Urine Urobilinogen 0.2 Ur Leukocyte Esterase Negative Urine RBC 0-1 Urine WBC 0 Ur Epithelial Cells 0 Calcium Oxalate Crystal 2+ Urine Bacteria 0 Urine Mucus Small Departure - Departure Clinical Impression: Methamphetamine abuse, Acute renal insufficiency, Lactic acidosis Disposition: Discharge to Home or Self Care Condition: Fair Departure Forms: ED Discharge - Pt. Copy, Patient Portal Self Enrollment Diet: bland diet Activity: increase activity as tolerated Referrals: Patience Arora FNP [Primary Care Provider] - 1-2 Weeks Home Medications: Ambulatory Orders Acetaminophen W/ Codeine [Tylenol W/ CODEINE #3] 1 ea PO Q6HRS #24 11/19/19 Additional Instructions: The patient is a 49-year-old male presented emergency room with what is most likely methamphetamine induced abdominal pain, along with resultant hypertension, acute renal insufficiency, dehydration and lactic acidosis. The patient has received 2 L of IV fluids, a dose of Toradol and a dose of morphine. 1 dose of nitroglycerin actually made the abdominal pain much better as well as the blood pressures. The patient has been dosed with a dose of his losartan as well for the hypertension and a small dose of amlodipine. The patient has been resting comfortably for the past several hours. The patient does have a very mild elevation of his troponin but looking back over his history he has had at least 8 or 9 cardiac enzymes drawn all of which have shown a chronic elevation of the troponin. The patient is apparently not a candidate for cardiology intervention with his continued methamphetamine abuse. He is to continue his outpatient antibiotics for his osteomyelitis. He does need to consider seeking help for his substance abuse issues. Blood pressures have improved and pain is controlled. I do want the patient to follow back up with his primary care doctor tomorrow. He obviously needs to avoid methamphetamine. His renal function will need to be monitored over the coming weeks. He does need to increase his fluid intake. He does need to follow his blood pressures. ER warnings are given.
--- NOTE | 2019-12-26 05:24 | RAD ---
EXAM DESCRIPTION: X-ray Abdomen Series CLINICAL HISTORY:49 years Male, acute onset rt abd pain Comparison: None FINDINGS: The lungs are clear. There are no pleural abnormality. Cardiac silhouette and pulmonary vessels are normal. Supine and upright views of the abdomen show no dilated loops of bowel. No pathologic calcifications. Osseous structures are unremarkable. IMPRESSION: No acute cardiac pulmonary disease. Nonobstructive bowel gas pattern. Electronically signed by: Lowell Xiong DO 12/26/2019 5:23 AM CDT
[2019-12-26] MEDS ORDERED: LOSARTAN POTASSIUM 25 MG TAB PO ONE (21:17)
== END 2019-12-25 22:35 | disposition home or self-care (01) ==
LOC: ER 19:02
DX: F15.10 Other stimulant abuse, uncomplicated (principal); N28.9 Disorder of kidney and ureter, unspecified; E87.2 Acidosis; E86.0 Dehydration; E78.00 Pure hypercholesterolemia, unspecified; I25.2 Old myocardial infarction; I10 Essential (primary) hypertension; J45.909 Unspecified asthma, uncomplicated; R10.9 Unspecified abdominal pain; F17.200 Nicotine dependence, unspecified, uncomplicated
CPT/HCPCS: 36415; 74019; 80053; 81001; 82150; 82550; 82553; 83605; 83690; 83735; 83880; 84484; 85025; 85379; 85610; 85730; 93005; A4216; J1885; J2550; J7030

== ENCOUNTER 2020-02-29 20:47 | Emergency (ER) | payer SELFPAY ==
[2020-02-29] MEDS ORDERED: SODIUM CHLORIDE 0.9% 1000ML 1,000 ML IVS PRN (21:06)
[2020-02-29] MEDS ORDERED: KETOROLAC TROMETHAMINE INJ 30 MG/ML VIAL IV ONE ×2 (21:08→21:49)
--- NOTE | 2020-02-29 21:08 | ED.PDOC ---
History of Present Illness - General Chief Complaint: Skin/Abrasion/Tear Stated Complaint: left thumb puss drng,red, swelling Time Seen by Provider: 02/29/20 21:03 - History of Present Illness Initial Comments: 49 yo M states 2 months ago he fractured his thumb, shortly after he developed pain and swelling around thumb, was diagnosed with osteomyelitis, he was discharged home on 6 weeks of levaquin and doxycycline. States they were going to amputate finger, but did a trial of antibiotics. Since Sunday he has been having increase pain, swelling and redness. no fevers or weakness. states he was going to try to wait, but the pain is too bad. After reviewing chart patient was on 6 weeks of antibiotics but discharged in December. still on antibiotics, not sure if patient is taking correctly. Does not have a pcp. IS not following up with anyone. Allergies/Adverse Reactions: Allergies Losartan Allergy (Verified 12/18/19 16:57) Home Medications: Ambulatory Orders Acetaminophen W/ Codeine [Tylenol W/ CODEINE #3] 1 ea PO Q6HRS #24 11/19/19 Past Medical History (General) - Patient Medical History Hx Seizures: No Hx Stroke: No Hx Asthma: Yes Hx of COPD: No Hx Cardiac Disorders: Yes - [place] x 2; hypercholesterolemia Hx Congestive Heart Failure: No Hx Pacemaker: No Hx Hypertension: Yes Hx Diabetes: No Hx Cancer: No Hx MRSA: No - Vaccination History Hx Tetanus, Diphtheria Vaccination: No Hx Influenza Vaccination: No Hx Pneumococcal Vaccination: No - Social History Hx Tobacco Use: Yes Hx Alcohol Use: No Hx Substance Use: Yes - smoke meth 4 days ago Hx Substance Use Treatment: Yes Hx Depression: No Hx Physical Abuse: No Hx Emotional Abuse: No - Female History Patient : No Family Medical History - Family History Father Living Status: Still Living Hx Family Hypertension: Yes Hx Cardiac Disease: Yes - multiple family members Physical Exam - Physical Exam General Appearance: Alert, Comfortable, No apparent distress Eyes, Ears, Nose, Throat Exam: PERRL/EOMI, normal ENT inspection, TMs normal Progress - Progress Progress: 02/29/20 23:36 After reviewing chart it appears that patient was sent for osteo back in December, thus his antibiotics should have been complete in January. xray shows destruction of the proximal and mid diaphysis of the left first distal phalanx with associated soft tissue swelling, consistent with osteomyelitis. Mild dorsal subluxation at the first IP joint. Patient given 30 mg toradol for pain. Also given some gabapentin. will give topical lidocaine for pain. Educated patient that he needs to go back to [facility] for failed outpatient treatment of osteo, patient declined. Will give Vancomycin here, no prior blood cultures on our documentation. 02/29/20 21:06 Sodium Chloride 0.9% 1000ML [Ns 1000 ml] 1,000 ml IVS STAT 02/29/20 21:20 BLOOD CULTURE Stat 02/29/20 21:46 Vancomycin HCl Inj 1,000 mg Sodium Chloride 0.9% 250Ml [NS 250ml] 250 ml IVPB ONCE Laboratory Results WBC 12.2 K/mm3 (4.8-10.8) H 02/29/20 21:16 RBC 5.68 M/mm3 (4.70-6.10) 02/29/20 21:16 Hgb 16.0 gm/dL (14.0-18.0) 02/29/20 21:16 Hct 46.9 % (42.0-52.0) 02/29/20 21:16 MCV 82.6 fl (80.0-94.0) 02/29/20 21:16 MCH 28.2 pg (27.0-31.0) 02/29/20 21:16 MCHC 34.1 g/dL (33.0-37.0) 02/29/20 21:16 RDW 15.2 % (11.5-14.5) H 02/29/20 21:16 Plt Count 255 K/mm3 (130-400) 02/29/20 21:16 MPV 9.1 fl (7.40-10.4) 02/29/20 21:16 Absolute Neuts (auto) 9.10 K/uL (1.8-6.8) H 02/29/20 21:16 Absolute Lymphs (auto) 2.20 K/uL (1.0-3.4) 02/29/20 21:16 Absolute Monos (auto) 0.70 K/uL (0.2-0.8) 02/29/20 21:16 Absolute Eos (auto) 0.10 K/uL (0.0-0.4) 02/29/20 21:16 Absolute Basos (auto) 0.10 K/uL (0.0-0.1) 02/29/20 21:16 Neutrophils % 74.6 % (42.0-78.0) 02/29/20 21:16 Lymphocytes % 17.8 % (20.0-50.0) L 02/29/20 21:16 Monocytes % 5.5 % (2.0-9.0) 02/29/20 21:16 Eosinophils % 0.9 % (1.0-5.0) L 02/29/20 21:16 Basophils % 1.2 % (0.0-2.0) 02/29/20 21:16 ESR 2 mm/hr (0-15) 02/29/20 21:16 Sodium 138 mmol/L (135-145) 02/29/20 21:16 Potassium 3.6 mmol/L (3.6-5.0) 02/29/20 21:16 Chloride 106 mmol/L (101-111) 02/29/20 21:16 Carbon Dioxide 22 mmol/L (21-31) 02/29/20 21:16 Anion Gap 13.6 (12-18) 02/29/20 21:16 BUN 8 mg/dL (7-18) 02/29/20 21:16 Creatinine 1.24 mg/dL (0.6-1.3) 02/29/20 21:16 BUN/Creatinine Ratio 6.5 (10-20) L 02/29/20 21:16 Random Glucose 201 mg/dL (70-105) H 02/29/20 21:16 Serum Osmolality 279.7 mOsm/L (275-295) 02/29/20 21:16 Calcium 8.6 mg/dL (8.4-10.2) 02/29/20 21:16 Total Bilirubin 0.8 mg/dL (0.2-1.0) 02/29/20 21:16 AST 29 IU/L (10-42) 02/29/20 21:16 ALT 14 IU/L (10-60) 02/29/20 21:16 Alkaline Phosphatase 80 IU/L (42-121) 02/29/20 21:16 C-Reactive Protein 0.6 mg/dL (0-1.0) 02/29/20 21:16 Serum Total Protein 7.3 gm/dL (6.4-8.2) 02/29/20 21:16 Albumin 4.0 g/dl (3.2-5.5) 02/29/20 21:16 Globulin 3.3 gm/dL (2.3-3.5) 02/29/20 21:16 Albumin/Globulin Ratio 1.2 (1.1-1.9) 02/29/20 21:16 03/01/20 00:04 again tried to explain the importance of going to back to [facility] for treatment, patient declined. Understands the risk of leaving. VSS. Patient states he will return tomorrow. Patient left AMA. Teodora Yi DO #[id number] Departure - Departure Clinical Impression: Hyperglycemia Osteomyelitis Qualifiers: Osteomyelitis type: other chronic Osteomyelitis location: hand Laterality: left Qualified Code(s): M86.642 - Other chronic osteomyelitis, left hand Time of Disposition: 00:06 Disposition: Left Against Medical Advice Departure Forms: ED Discharge - Pt. Copy, Patient Portal Self Enrollment Instructions: DI for Abrasion, Osteomyelitis Referrals: Patience Arora FNP [Primary Care Provider] - 1-2 Days Krunal Hernandez MD [Active Staff] - 1-2 Days Home Medications: Ambulatory Orders Acetaminophen W/ Codeine [Tylenol W/ CODEINE #3] 1 ea PO Q6HRS #24 11/19/19
[2020-02-29] MEDS ORDERED: VANCOMYCIN HCL INJ 1,000 MG in SODIUM CHLORIDE 0.9% 250ML 250 ML IVPB ONE (21:46)
[2020-02-29] MEDS ORDERED: GABAPENTIN 100 MG CAP PO ONE (21:50)
--- NOTE | 2020-02-29 21:53 | RAD ---
EXAM DESCRIPTION: XR Fingers, Left CLINICAL HISTORY: 49 years Male thumb infection TECHNIQUE: Three views of the left thumb are provided. COMPARISON: No prior exams provided for comparison. FINDINGS: There is has been destruction of the proximal and mid diaphysis of the left first distal phalanx. The base and tip of the first distal phalanx remain with erosive changes. There is mild dorsal subluxation at the first interphalangeal joint with diffuse soft tissue swelling. No visualized soft tissue gas or foreign body. No other aggressive osseous lesion. IMPRESSION: There has been destruction of the proximal and mid diaphysis of the left first distal phalanx with associated soft tissue swelling, consistent with osteomyelitis. Mild dorsal subluxation at the first IP joint. Electronically signed by: Adriana Laughlin MD 02/29/2020 9:51 PM CDT
[2020-02-29] MEDS ORDERED: CHLORHEXIDINE GLUCONATE 4 % 15 ML UD TOP ONE (22:41)
[2020-02-29] MEDS ORDERED: LIDOCAINE/PRILOCAINE 2.5% 30 GM TUBE TOP ONE (22:52)
[2020-03-01 02:36] VITALS: BP 152/94; TEMP 97.7; O2SAT 95
== END 2020-03-01 02:38 | disposition left against medical advice (07) ==
LOC: ER 20:47
DX: M86.642 Other chronic osteomyelitis, left hand (principal); S62.522S Displaced fracture of distal phalanx of left thumb, sequela; I25.2 Old myocardial infarction; E78.00 Pure hypercholesterolemia, unspecified; I10 Essential (primary) hypertension; J45.909 Unspecified asthma, uncomplicated; Z53.29 Procedure and treatment not carried out because of patient's decision for other reasons; Z88.8 Allergy status to other drugs, medicaments and biological substances; Z87.891 Personal history of nicotine dependence
CPT/HCPCS: 73140; 80053; 85025; 85651; 86140; 87040; J1885; J3370; J7030; J7050